=== PATIENT | female | born 1935 | race Caucasian/White ===

== ENCOUNTER 2018-01-20 12:34 | Inpatient (IN) ==
[2018-01-20] MEDS ORDERED: MethylPREDNISolone Sod Succinate Inj 125 MG/2 ML Vial IV.PUSH ONE (12:57)
--- NOTE | 2018-01-20 13:08 | ED ---
HPI General Chief Complaint: Respiratory Symptoms Stated Complaint: cold symptoms Time Seen by Provider: 01/20/18 12:40 Source: patient and RN notes reviewed Mode of arrival: ambulatory Limitations: no limitations History of Present Illness 82-year-old female presents to the emergency department for evaluation of shortness of breath. Patient saw her primary care physician, Dr. England at the [facility] here [place] today. She has been on prednisone, 10 days of Cipro without improvement. Her oxygen saturation has been running in the upper 80s for the past couple of weeks. She reports increasing shortness of breath. She is using a nebulizer at home with some improvement when she uses it. No fevers. She denies any chest pain. No abdominal pain. No nausea or vomiting. She is not on anticoagulants. She denies any cardiac history. Moderate severity. MD Complaint: Reports shortness of breath Onset (ago): week(s) Severity: moderate Consistency/Duration: constant Relieving factors: bronchodilators Known history of: Reports COPD Associated symptoms: Reports cough and chest congestion; Denies chest pain, pain with inspiration, fever, wheezing, lower extremity pain, polyuria, polydipsia, paresthesias, palpitations, carpopedal spasm, hemoptysis, diaphoresis, nausea/vomiting, syncope, abdominal pain, rash, sense of impending doom, dizziness and lightheadedness Related Data Home Medications Medication Instructions Recorded Confirmed amlodipine 5 mg PO DAILY 01/20/18 01/20/18 benzonatate 200 mg PO TID PRN 01/20/18 01/20/18 cetirizine [Zyrtec] 10 mg PO DAILY 01/20/18 01/20/18 cholecalciferol (vitamin D3) 1,000 unit PO DAILY 01/20/18 01/20/18 [Vitamin D3] cyanocobalamin (vitamin B-12) 1,000 mcg PO DAILY 01/20/18 01/20/18 [Vitamin B-12] escitalopram oxalate [Lexapro] 10 mg PO DAILY 01/20/18 01/20/18 ipratropium-albuterol 3 ml INHALATION QID PRN 01/20/18 01/20/18 levothyroxine 112 mcg PO DAILY 01/20/18 01/20/18 pioglitazone [Actos] 15 mg PO DAILY 01/20/18 01/20/18 pravastatin 80 mg PO DAILY 01/20/18 01/20/18 prednisone 10 mg PO DIRECTED 01/20/18 01/20/18 Allergies Allergy/AdvReac Type Severity Reaction Status Date / Time paper tape AdvReac Intermediate rash Uncoded 05/18/12 10:11 Review of Systems ROS: all other systems reviewed are negative [facility] Medical History Medical History Breast cancer (Acute) COPD (chronic obstructive pulmonary disease) (Acute) Diabetes mellitus type II, controlled (Acute) Hypertension (Acute) Lymphedema (Acute) Social History Social History Substance History: No History of Abuse Second Hand Smoke Exposure: No Smoking Status: Former smoker Tobacco Type: E-Cigarettes How Often Do You Have a Drink Containing Alcohol: Monthly or less Recent Travel in [facility] within the Last 8 Weeks: No Recent Out of Country Travel within the Last 8 Weeks: No Immunization History Tetanus Immunization: Unsure Exam Narrative Exam Narrative: GENERAL: Well-nourished, well-developed elderly female patient, ambulatory. Afebrile. SKIN: Focused skin assessment warm/dry. HEAD: Normocephalic. Atraumatic. EYES: No scleral icterus. No injection or drainage. NECK: Supple, trachea midline. No JVD or lymphadenopathy. CARDIOVASCULAR: Regular rate and rhythm without murmurs, gallops, or rubs. RESPIRATORY: Breath sounds equal bilaterally. No accessory muscle use. Lung sounds are diminished throughout. Patient is tachypneic GASTROINTESTINAL: Abdomen soft, non-tender, nondistended. MUSCULOSKELETAL: No cyanosis, or edema. BACK: Nontender without obvious deformity. No CVA tenderness. Course Initial Documented Vital Signs Temperature 97.3 F L 01/20/18 12:37 Pulse Rate 89 01/20/18 12:37 Respiratory Rate 22 01/20/18 12:37 Blood Pressure 173/87 H 01/20/18 12:37 Pulse Oximetry 88 L 01/20/18 12:37 Last Documented Vital Signs Temperature 97.3 F L 01/20/18 12:37 Pulse Rate 85 01/20/18 16:48 Respiratory Rate 16 01/20/18 16:48 Blood Pressure 160/73 H 01/20/18 14:00 Pulse Oximetry 96 01/20/18 14:00 Medical Decision Making MDM Narrative Medical decision making narrative: 82-year-old presents to the emergency department sent by the resident, Dr. England, for COPD exacerbation. Patient is on saturation is 88% on room air. She is not on home O2. EKG, CBC, CMP, lactic acid, magnesium, CK, troponin, chest x-ray are ordered and pending. Patient is given DuoNeb x3, Solu-Medrol 125 mg IV. EKg [-]. CBC shows leukocytosis of 12.2. CMP shows BUN of 30, creatinine of 1.51. Lactic acid is 1.5. Magnesium is 1.9. CK is 200. Troponin is 0.05. Chest x-ray shows mild opacity at the right lung base has an appearance favoring atelectasis or consolidation and small pleural effusion, stable 5 mm right lower lobe noncalcified pulmonary nodule. Patient start azithromycin and Rocephin. She will be admitted for COPD exacerbation, pneumonia, hypoxia. Medical Screen Exam Complete: Yes Emergency Medical Condition: Yes Differential Diagnosis Differential Diagnosis: COPD exacerbation versus pneumonia versus CHF versus sepsis Lab Data Result diagrams: 01/20/18 13:00 01/20/18 13:00 Lab Results 01/20/18 01/20/18 01/20/18 Range/Units 13:00 13:00 13:05 WBC 12.2 H (4.0-11.0) th/mm3 RBC 4.56 (4.00-5.30) mil/mm3 Hgb 14.8 (11.6-15.3) gm/dL Hct 46.0 (35.0-46.0) % MCV 100.8 H (80.0-100.0) fL MCH 32.5 (27.0-34.0) pg MCHC 32.2 (32.0-36.0) % RDW 15.5 (11.6-17.2) % Plt Count 332 (150-450) th/mm3 MPV 7.7 (7.0-11.0) fL Neut % (Auto) 89.3 H (16.0-70.0) % Lymph % (Auto) 4.7 L (9.0-44.0) % Stephens % (Auto) 4.7 (0.0-8.0) % Eos % (Auto) 0.6 (0.0-4.0) % Baso % (Auto) 0.7 (0.0-2.0) % Neut # (Auto) 10.9 H (1.8-7.7) th/mm3 Lymph # (Auto) 0.6 L (1.0-4.8) th/mm3 Stephens # (Auto) 0.6 (0.0-0.9) th/mm3 Eos # (Auto) 0.1 (0.0-0.4) th/mm3 Baso # (Auto) 0.1 (0.0-0.2) th/mm3 WBC Differential . Differential Comment Auto diff final Sodium 141 (136-145) meq/L Potassium 4.6 (3.5-5.1) meq/L Chloride 103 (98-107) meq/L Carbon Dioxide 29.3 (21.0-32.0) meq/L Anion Gap 9 (5-15) meq/L BUN 30 H (7-18) mg/dL Creatinine 1.51 H (0.50-1.00) mg/dL Estimated GFR 33 L (>89) mL/min Random Glucose 106 (74-106) mg/dL Lactic Acid 1.5 (0.4-2.0) mmol/L Calcium 8.2 L (8.5-10.1) mg/dL Magnesium 1.9 (1.5-2.5) mg/dL Total Bilirubin 0.8 (0.2-1.0) mg/dL AST 42 H (15-37) U/L ALT 73 H (10-53) U/L Alkaline Phosphatase 77 (45-117) U/L Total Creatine Kinase 200 H (26-192) U/L CK-MB (CK-2) 8.8 H (0.5-3.6) ng/mL CK-MB (CK-2) % 4.4 H* (0.0-4.0) % Troponin I 0.05 (0.02-0.05) ng/mL Total Protein 7.2 (6.4-8.2) g/dL Albumin 3.1 L (3.4-5.0) g/dL Imaging Data Radiologist's impression: Chest X-Ray 01/20/18 12:58 CONCLUSION: 1. Mild opacity at the right lung base has an appearance favoring atelectasis or consolidation and small pleural effusion. 2. Stable 5 mm right lower lobe noncalcified pulmonary nodule. Discharge Plan Discharge Disposition Patient Disposition: ED Admit(ED Internal Use Only) Discharge Order Discharge Orders: ED Use Only Admit Order (Routine); Ordered 01/20/18 Ordered By: Shayy Pro Discharge Details Diagnosis: COPD exacerbation, Pneumonia Physicians Team ED Provider: Manuela Paniagua ED Midlevel Provider: Shayy Pro Primary Care Provider: Lyndon Henry Attending Provider: Dani Sy Discharge Interventions Interventions: Vital Signs Last Done: 01/20/18 14:00 Status ED Status: Admitted Patient
[2018-01-20 13:31] LABS: Baso # (Auto) 0.1 th/mm3 (0.0-0.2); Baso % (Auto) 0.7 % (0.0-2.0); Eos # (Auto) 0.1 th/mm3 (0.0-0.4); Eos % (Auto) 0.6 % (0.0-4.0); Hemoglobin 14.8 gm/dL (11.6-15.3); Lymph # (Auto) 0.6 th/mm3 (1.0-4.8); Lymph % (Auto) 4.7 % (9.0-44.0); Mean Corpuscular HGB Conc 32.2 % (32.0-36.0); Mean Corpuscular Hemoglobin 32.5 pg (27.0-34.0); Mean Corpuscular Volume 100.8 fL (80.0-100.0); Mean Platelet Volume 7.7 fL (7.0-11.0); Mono # (Auto) 0.6 th/mm3 (0.0-0.9); Mono % (Auto) 4.7 % (0.0-8.0); Neut # (Auto) 10.9 th/mm3 (1.8-7.7); Neut % (Auto) 89.3 % (16.0-70.0); Platelet Count 332 th/mm3 (150-450); Red Blood Count 4.56 mil/mm3 (4.00-5.30); Red Cell Distribution Width 15.5 % (11.6-17.2); White Blood Count 12.2 th/mm3 (4.0-11.0)
--- NOTE | 2018-01-20 13:53 | XR ---
EXAM DATE: 01/20/2018 1:33 PM EST AGE/SEX: 82 years / Female INDICATIONS: Shortness of breath and congestion. CLINICAL DATA: This is the patient's initial encounter. Patient reports that signs and symptoms have been present for 3 days and indicates a pain score of 0/10. MEDICAL/SURGICAL HISTORY: Chronic obstructive pulmonary disease. Carcinoma, breast. Diabetes mellitus type II. . Lumpectomy. COMPARISON: [facility], CTA PULMONARY ANGIOGRAM, 11/25/2017. . FINDINGS: Portable AP view of the chest demonstrates stable mildly enlarged cardiac silhouette with calcificati on of the aorta. There is mild hazy opacity at the right lung base. A questionable right pleural-base d opacity is present. No pneumothorax is identified. 5 mm nodule in the right lower lung zone is stab le. Bones and soft tissues demonstrate no acute finding. CONCLUSION: 1. Mild opacity at the right lung base has an appearance favoring atelectasis or consolidation and s mall pleural effusion. 2. Stable 5 mm right lower lobe noncalcified pulmonary nodule. Electronically signed by: Benja Shirley MD 01/20/2018 1:51 PM EST
[2018-01-20 13:54] LABS: Alanine Aminotransferase 73 U/L (10-53); Albumin 3.1 g/dL (3.4-5.0); Anion Gap 9 meq/L (5-15); Aspartate Aminotransferase 42 U/L (15-37); Blood Urea Nitrogen 30 mg/dL (7-18); Calcium 8.2 mg/dL (8.5-10.1); Carbon Dioxide 29.3 meq/L (21.0-32.0); Chloride 103 meq/L (98-107); Glomerular Filtration Rate 33 mL/min (>89); Glucose,Random 106 mg/dL (74-106); Magnesium 1.9 mg/dL (1.5-2.5); Potassium 4.6 meq/L (3.5-5.1); Sodium 141 meq/L (136-145)
[2018-01-20 13:57] LABS: Alkaline Phosphatase 77 U/L (45-117); Creatine Kinase 200 U/L (26-192); Total Protein 7.2 g/dL (6.4-8.2); Troponin I 0.05 ng/mL (0.02-0.05)
[2018-01-20] MEDS ORDERED: Azithromycin Inj 500 MG in Sodium Chlor 0.9% Inj 250 ML IV.SIG ONE (13:57)
[2018-01-20 14:16] LABS: Creatine Kinase MB 8.8 ng/mL (0.5-3.6)
--- NOTE | 2018-01-20 14:58 | P.HPFP ---
History of Present Illness Service: [facility] Teaching Service <Dani Martinez - 01/20/18 15:55> Primary Care Physician: Lyndon Henry MD <Dani Sy Adeline - 01/21/18 20:20> Lyndon Henry MD <Dani Martinez - 01/20/18 15:55> Chief Complaint: dyspnea <Dani Martinez - 01/20/18 15:55> History of Present Illness: Patient is an 82 year old female with a history of COPD, not on home oxygen, CKD stage III, hypertension, diabetes, hypothyroidism , hyperlipidemia, depression who presents with increased dyspnea. She reports that her symptoms started a couple mornings before with a scratchy, itchy throat. Then the Tuesday before , she presented to an urgent care, where she was told her chest sounded raspy. They gave her a 10-day course of ciprofloxacin, 15-day steroid taper, and Tessalon Perles. Despite taking the medications as prescribed, patient reports that her symptoms got worse with chest congestion, rough cold symptoms. Patient has also doing nebulizer treatments up to 4 times a day intermittently without symptom resolution. Because she hasn't been getting any better, she presented to Dr. England earlier today. He referred her to the ED. Patient reports shortness of breath secondary to excessive mucus production. She reports a productive cough, that recently seems thicker and darker than usual. She reports that she is not drinking enough fluids. She hasn't peed since she got to ED. She reports that her dysequilibrium is worse than usual because it feels like her head is in a fog. No fevers. She denies any chest pain. No abdominal pain. No nausea or vomiting. She is not on anticoagulants. She denies any cardiac history. Patient reports that she has a beer cooler, Dr. Guzmán. Dr. England' note says her beer cooler is Dr. Montalvo. <Dani Martinez - 01/20/18 21:28> - Diagnosis (1) Pneumonia (2) COPD exacerbation (3) Elevated CK-MB level (4) Intertrigo (5) CKD (chronic kidney disease) stage 3, GFR 30-59 ml/min (6) Hypothyroidism (7) HTN (hypertension) (8) Type 2 diabetes mellitus (9) HLD (hyperlipidemia) (10) Depression <YossiDani Adeline - 01/21/18 20:20> (1) Pneumonia (2) COPD exacerbation (3) Elevated CK-MB level (4) Intertrigo (5) CKD (chronic kidney disease) stage 3, GFR 30-59 ml/min (6) Hypothyroidism (7) HTN (hypertension) (8) Type 2 diabetes mellitus (9) HLD (hyperlipidemia) (10) Depression <Dani Martinez A - 01/20/18 21:29> Inpatient Certification: I certify that the inpatient services were ordered in accordance with Medicare regulations governing the order. This includes certification that hospital inpatient services are reasonable and necessary and in the case of services not specified as inpatient-only under 42 CFR 419.22(n), that they are appropriately provided as inpatient services in accordance to with the 2-midnight benchmark under 43 CFR 412.3(e) <Dani Sy - 01/21/18 20:20> I certify that the inpatient services were ordered in accordance with Medicare regulations governing the order. This includes certification that hospital inpatient services are reasonable and necessary and in the case of services not specified as inpatient-only under 42 CFR 419.22(n), that they are appropriately provided as inpatient services in accordance to with the 2-midnight benchmark under 43 CFR 412.3(e) <MichelleDaniMarcio - 01/20/18 14:58> Review of Systems Denies fever or chills, no night sweats or weight loss No polyuria, polydipsia Denies vision changes, eye pain, hearing changes Denies dysphagia No chest pain, palpitations No abdominal pain Denies constipation, diarrhea, nausea, vomiting, black or bloody stools No dysuria, hematuria Denies muscle/joint pain, weakness, headache No rashes, itching <Dani Martinez - 01/20/18 21:28> PMFSH - History History Provided By: Patient <MichelleDaniMarcio - 01/20/18 14:58> - Medical History Medical History: Medical History (Last Updated 01/20/18 @ 12:58 by Sandra Law) Breast cancer COPD (chronic obstructive pulmonary disease) Diabetes mellitus type II, controlled Hypertension Lymphedema <Dani Sy - 01/21/18 20:20> Medical History (Last Updated 01/20/18 @ 12:58 by Sandra Law) Breast cancer COPD (chronic obstructive pulmonary disease) Diabetes mellitus type II, controlled Hypertension Lymphedema <Dani Martinez - 01/20/18 14:58> - Tobacco History Second Hand Smoke Exposure: No <Dani Martinez - 01/20/18 14:58> Tobacco Use In Past 30 Days: Yes <Dani Martinez - 01/20/18 14:58> Smoking Status: Former smoker <Dani Martinez - 01/20/18 14:58> Tobacco Type: E-Cigarettes <Dani Martinez - 01/20/18 14:58> - Alcohol History How Often Do You Have a Drink Containing Alcohol: Monthly or less <Dani Martinez - 01/20/18 14:58> - Substance Use History Substance History: No History of Abuse <Dani Martinez - 01/20/18 14:58> - Travel History Recent Travel in the [facility] Within the Last 8 Weeks: No <Dani Martinez - 01/20 14:58> Recent Travel Out of the Country Within the Last 8 Weeks: No <Dani Martinez - 01/20/18 14:58> - Immunization History Tetanus Immunization: Unsure <Dani Martinez - 01/20/18 14:58> Medications and Allergies Allergies Allergy/AdvReac Type Severity Reaction Status Date / Time paper tape AdvReac Intermediate rash Uncoded 05/18/12 10:11 <Dani Sy - 01/21/18 20:20> Home Medications Medication Instructions Recorded Confirmed Type amlodipine 5 mg PO DAILY 01/20/18 01/20/18 History benzonatate 200 mg PO TID PRN 01/20/18 01/20/18 History cetirizine [Zyrtec] 10 mg PO DAILY 01/20/18 01/20/18 History cholecalciferol (vitamin D3) 1,000 unit PO DAILY 01/20/18 01/20/18 History [Vitamin D3] cyanocobalamin (vitamin B-12) 1,000 mcg PO DAILY 01/20/18 01/20/18 History [Vitamin B-12] escitalopram oxalate [Lexapro] 10 mg PO DAILY 01/20/18 01/20/18 History ipratropium-albuterol 3 ml INHALATION QID PRN 01/20/18 01/20/18 History levothyroxine 112 mcg PO DAILY 01/20/18 01/20/18 History pioglitazone [Actos] 15 mg PO DAILY 01/20/18 01/20/18 History pravastatin 80 mg PO DAILY 01/20/18 01/20/18 History prednisone 10 mg PO DIRECTED 01/20/18 01/20/18 History <Dani Sy L - 01/21/18 20:20> Active Medications: Active Medications Albuterol (Albuterol Neb (Prn)) 2.5 mg NEB Q2HR NEB PRN PRN Reason: SHORTNESS OF BREATH Albuterol (Duoneb Neb (Bay)) 1 ampul NEB Q4HR NEB [facility] Last Admin: 01/21/18 20:10 Dose: 1 ampul Amlodipine Besylate (Norvasc) [address] [facility] Last Admin: 01/21/18 09:14 Dose: 5 mg Azithromycin (Zithromax) [address] [facility] Stop: 01/23/18 14:01 Last Admin: 01/21/18 13:24 Dose: 500 mg Benzonatate (Tessalon Perles) 200 mg PO TID PRN PRN Reason: COUGH Budesonide/Formoterol Fumarate (Symbicort 160/4.5 Mcg Inh) [address] [facility] Last Admin: 01/21/18 12:58 Dose: 2 puff Cetirizine HCl (Zyrtec) [address] [facility] Last Admin: 01/21/18 09:13 Dose: 10 mg Clotrimazole (Lotrimin 1% Cream) [address] [facility] Last Admin: 01/21/18 18:08 Dose: 1 applicatio Cyanocobalamin (Vitamin B12) 1,[address] [facility] Last Admin: 01/21/18 09:14 Dose: 1,000 mcg Dextrose (D50w Vial) 50 ml IV.PUSH UNSCH PRN PRN Reason: PER HYPOGLYCEMIA PROTOCOL Enoxaparin Sodium (Lovenox Inj) [address] [facility] Last Admin: 01/21/18 17:32 Dose: 40 mg Escitalopram Oxalate (Lexapro) [address] [facility] Last Admin: 01/21/18 09:14 Dose: 10 mg Glucagon (Glucagon Inj) 1 mg OTHER PRN PRN PRN Reason: for Hypoglycemia Protocol Sodium Chloride (Ns Inj) 1,000 mls @ 130 mls/hr IV.CONT .Q7H42M [facility] Last Admin: 01/21/18 17:25 Dose: 130 mls/hr Ceftriaxone Sodium 1,000 mg/ (Sodium Chloride) 100 mls @ 200 mls/hr IV.SIG Q24H [facility] Last Infusion: 01/21/18 18:09 Dose: Infused Insulin Aspart (Novolog Insulin Correctional Sugar Inj) [address] [facility]; Protocol Last Admin: 01/21/18 17:33 Dose: Not Given Levothyroxine Sodium (Synthroid) 112 mcg PO DAILY@0600 [facility] Last Admin: 01/21/18 05:17 Dose: 112 mcg Methylprednisolone Sodium Succinate (Solumedrol Inj) [address] [facility] Stop: 01/22/18 08:59 Last Admin: 01/21/18 17:28 Dose: 60 mg Nicotine (Habitrol 21 Mg Patch.24 Hr) 1 patch T-DERMAL Q24H [facility] Last Admin: 01/21/18 17:30 Dose: Not Given Nitroglycerin (Nitro-Bid 2% Oint) [address] [facility] Last Admin: 01/21/18 17:31 Dose: 1 inch Patch Removal (Remove Old Patch) 1 each T-DERMAL Q24H [facility] Last Admin: 01/21/18 17:34 Dose: Not Given Pravastatin Sodium (Pravachol) [address] [facility] Last Admin: 01/21/18 09:14 Dose: 80 mg Prednisone (Deltasone) [address] [facility] Sodium Chloride (Ns Inj) [address] [facility] Last Admin: 01/21/18 09:16 Dose: Not Given Sodium Chloride (Ns Inj) [address] [facility] Last Admin: 01/21/18 09:16 Dose: Not Given Vitamin D (Vitamin D3) 1,[address] [facility] Last Admin: 01/21/18 09:14 Dose: 1,000 unit <Dani Sy - 01/21/18 20:20> Home Medications amlodipine 5 mg PO DAILY 01/20/18 [History Confirmed 01/20/18] benzonatate 200 mg PO TID PRN 01/20/18 [History Confirmed 01/20/18] cetirizine [Zyrtec] 10 mg PO DAILY 01/20/18 [History Confirmed 01/20/18] cholecalciferol (vitamin D3) [Vitamin D3] 1,000 unit PO DAILY 01/20/18 [History Confirmed 01/20/18] cyanocobalamin (vitamin B-12) [Vitamin B-12] 1,000 mcg PO DAILY 01/20/18 [ History Confirmed 01/20/18] escitalopram oxalate [Lexapro] 10 mg PO DAILY 01/20/18 [History Confirmed ] ipratropium-albuterol 3 ml INHALATION QID PRN 01/20/18 [History Confirmed ] levothyroxine 112 mcg PO DAILY 01/20/18 [History Confirmed 01/20/18] pioglitazone [Actos] 15 mg PO DAILY 01/20/18 [History Confirmed 01/20/18] pravastatin 80 mg PO DAILY 01/20/18 [History Confirmed 01/20/18] prednisone 10 mg PO DIRECTED 01/20/18 [History Confirmed 01/20/18] Active Medications Albuterol (Albuterol Neb (Prn)) 2.5 mg NEB Q2HR NEB PRN PRN Reason: SHORTNESS OF BREATH Albuterol (Duoneb Neb (Bay)) 1 ampul NEB Q4HR NEB [facility] Last Admin: 01/20/18 16:47 Dose: 1 ampul Amlodipine Besylate (Norvasc) [address] [facility] Azithromycin (Zithromax) [address] [facility] Stop: 01/23/18 14:01 Benzonatate (Tessalon Perles) 200 mg PO TID PRN PRN Reason: COUGH Cetirizine HCl (Zyrtec) [address] [facility] Clotrimazole (Lotrimin 1% Cream) [address] [facility] Last Admin: 01/20/18 19:52 Dose: 1 applicatio Cyanocobalamin (Vitamin B12) 1,[address] [facility] Dextrose (D50w Vial) 50 ml IV.PUSH UNSCH PRN PRN Reason: PER HYPOGLYCEMIA PROTOCOL Enoxaparin Sodium (Lovenox Inj) [address] [facility] Last Admin: 01/20/18 17:12 Dose: 40 mg Escitalopram Oxalate (Lexapro) [address] [facility] Glucagon (Glucagon Inj) 1 mg OTHER PRN PRN PRN Reason: for Hypoglycemia Protocol Sodium Chloride (Ns Inj) 1,000 mls @ 130 mls/hr IV.CONT .Q7H42M [facility] Last Admin: 01/20/18 15:36 Dose: 130 mls/hr Ceftriaxone Sodium 1,000 mg/ (Sodium Chloride) 100 mls @ 200 mls/hr IV.SIG Q24H [facility] Insulin Aspart (Novolog Insulin Correctional Sugar Inj) 0 unit SQ ACHS [facility]; Protocol Last Admin: 01/20/18 20:58 Dose: 2 unit Levothyroxine Sodium (Synthroid) 112 mcg PO DAILY@0600 [facility] Methylprednisolone Sodium Succinate (Solumedrol Inj) [address] [facility] Stop: 01/22/18 08:59 Nicotine (Habitrol 21 Mg Patch.24 Hr) 1 patch T-DERMAL Q24H [facility] Last Admin: 01/20/18 16:24 Dose: Not Given Nitroglycerin (Nitro-Bid 2% Oint) [address] [facility] Last Admin: 01/20/18 18:38 Dose: 1 inch Patch Removal (Remove Old Patch) 1 each T-DERMAL Q24H [facility] Pravastatin Sodium (Pravachol) [address] [facility] Prednisone (Deltasone) [address] [facility] Sodium Chloride (Ns Inj) [address] [facility] Last Admin: 01/20/18 20:58 Dose: 2 ml Sodium Chloride (Ns Inj) [address] [facility] Last Admin: 01/20/18 20:58 Dose: Not Given Vitamin D (Vitamin D3) 1,[address] [facility] <Dani Martinez - 01/20/18 21:28> Exam Vital signs: Vital Signs 01/21/18 00:00 01/21/18 00:38 01/21/18 03:33 Temperature 97.1 F L Pulse Rate 97 H 91 H 89 Respiratory Rate 18 18 20 Blood Pressure 134/67 Pulse Oximetry 95 94 L 01/21/18 04:00 01/21/18 07:30 01/21/18 08:00 Temperature 97.9 F 97.6 F Pulse Rate 95 H 97 H 92 H Respiratory Rate 18 20 16 Blood Pressure 138/73 177/92 H Pulse Oximetry 93 L 97 97 01/21/18 11:39 01/21/18 12:00 01/21/18 16:00 Temperature 97.7 F 97.2 F L Pulse Rate 92 H 92 H 97 H Respiratory Rate 16 16 16 Blood Pressure 133/83 130/76 Pulse Oximetry 96 94 L 01/21/18 16:22 01/21/18 20:12 Temperature Pulse Rate 89 89 Respiratory Rate 16 16 Blood Pressure Pulse Oximetry 94 L Intake & Output 01/21/18 01/21/18 01/22/18 06:59 18:59 06:59 Intake Total 1600 / 1600 660 / 660 Output Total 200 / 200 540 / 540 Balance 1400 / 1400 120 / 120 Weight 90.9 kg Intake: IV 1000 / 1000 100 / 100 NS Inj 1,000 ML @ 130 mls/hr IV 1000 / [address] [facility] Rx#:[id number] Rocephin Inj 1,000 MG In NS Inj 100 / 100 100 ML @ 200 mls/hr IV.SIG Q24H [facility] Rx#:[id number] Oral 600 / 600 560 / 560 Output: Urine 200 / 200 540 / 540 Other: Date of Last Bowel Movement 01/21/18 01/20/18 # Bowel Movements 1 <Dani Sy - 01/21/18 20:20> Vital Signs 01/20/18 12:37 01/20/18 12:59 01/20/18 13:13 Temperature 97.3 F L Pulse Rate 89 86 81 Respiratory Rate 22 24 22 Blood Pressure 173/87 H 190/86 H Pulse Oximetry 88 L 88 L 94 L 01/20/18 13:59 01/20/18 14:00 Temperature Pulse Rate 85 Respiratory Rate 16 Blood Pressure 160/73 H Pulse Oximetry 92 L 96 Intake & Output 01/19/18 01/20/18 01/20/18 18:59 06:59 18:59 Intake Total 100 / 100 Balance 100 / 100 Weight 90.265 kg Intake: IV 100 / 100 Rocephin Inj 1,000 MG In NS Inj 100 / 100 100 ML @ 200 mls/hr IV.SIG ONCE ONE Rx#:[id number] <Dani Martinez - 01/20/18 14:58> Narrative: Patient is an 82-year-old female. GENERAL: Well developed, obese female who answers questions appropriately. She is sitting in exam room with her daughter in no acute distress. SKIN: + Erythematous macular rash under left breast, + satellite lesions. + skin tenting EYES: PERRLA. EOMI. Lids and conjunctivae reveal no gross abnormality. No scleral icterus. ENT: Dry mucous membranes. Oropharynx unremarkable. No rhinorrhea. Tympanic membranes normal bilaterally. NECK: No JVD. + cervical lymphadenopathy appreciated. Trachea midline. RESPIRATORY: No increased work of breathing or accessory muscle use but mild tachypnea. Coarse breath sounds. Decreased breath sounds at the bases. End- expiratory wheezes bilaterally. Crackles and dullness to percussion appreciated over the right lower lung lora. CARDIOVASCULAR: Regular rate and rhythm without MGR appreciated. ABDOMEN: Obese and slightly distended. Non tender. MUSCULOSKELETAL: No cyanosis or edema. No calf tenderness, warmth, erythema. NEUROLOGICAL: Afocal. AAO x3. Normal speech and judgment. <Dani Martinez - 01/20/18 21:28> Results - Labs Result diagrams: 01/21/18 01:38 01/21/18 01:38 <Dani Sy - 01/21/18 20:20> Abnormal lab results 01/20/18 01/21/18 01/21/18 Range/Units 20:19 01:38 01:38 Neut % (Auto) 93.2 H (16.0-70.0) % Lymph % (Auto) 3.7 L (9.0-44.0) % Lymph # (Auto) 0.3 L (1.0-4.8) th/mm3 BUN 42 H (7-18) mg/dL Creatinine 1.83 H (0.50-1.00) mg/dL Estimated GFR 27 L (>89) mL/min POC Glucose 219 H (68-110) mg/dl Random Glucose 201 H (74-106) mg/dL Calcium 7.2 L* D (8.5-10.1) mg/dL Calcium Adj for Albumin 8.3 L (8.5-10.1) mg/dL ALT 54 H (10-53) U/L Total Creatine Kinase (26-192) U/L CK-MB (CK-2) 7.2 H (0.5-3.6) ng/mL Total Protein 6.2 L D (6.4-8.2) g/dL Albumin 2.6 L (3.4-5.0) g/dL 01/21/18 01/21/18 01/21/18 Range/Units 09:47 17:03 19:34 Neut % (Auto) (16.0-70.0) % Lymph % (Auto) (9.0-44.0) % Lymph # (Auto) (1.0-4.8) th/mm3 BUN (7-18) mg/dL Creatinine (0.50-1.00) mg/dL Estimated GFR (>89) mL/min POC Glucose 194 H 185 H (68-110) mg/dl Random Glucose (74-106) mg/dL Calcium (8.5-10.1) mg/dL Calcium Adj for Albumin (8.5-10.1) mg/dL ALT (10-53) U/L Total Creatine Kinase 229 H (26-192) U/L CK-MB (CK-2) 8.8 H (0.5-3.6) ng/mL Total Protein (6.4-8.2) g/dL Albumin (3.4-5.0) g/dL Short CBC 01/21/18 Range/Units 01:38 WBC 8.2 (4.0-11.0) th/mm3 Hgb 13.0 (11.6-15.3) gm/dL Hct 39.4 (35.0-46.0) % Plt Count 265 (150-450) th/mm3 BMP 01/21/18 01:38 Sodium 141 Potassium 4.3 Chloride 106 Carbon Dioxide 24.2 BUN 42 H Creatinine 1.83 H Calcium 7.2 L* D Cardiac Enzymes 01/20/18 01/21/18 01/21/18 Range/Units 20:02 01:38 09:47 Total Creatine Kinase 175 164 229 H (26-192) U/L CK-MB (CK-2) 7.2 H 8.8 H (0.5-3.6) ng/mL Troponin I 0.05 0.05 (0.02-0.05) ng/mL Liver Function 01/21/18 Range/Units 01:38 Total Bilirubin 0.2 (0.2-1.0) mg/dL AST 23 (15-37) U/L ALT 54 H (10-53) U/L Alkaline Phosphatase 64 (45-117) U/L Albumin 2.6 L (3.4-5.0) g/dL <Dani Sy L - 01/21/18 20:20> Abnormal lab results 01/20/18 01/20/18 Range/Units 13:00 13:00 WBC 12.2 H (4.0-11.0) th/mm3 MCV 100.8 H (80.0-100.0) fL Neut % (Auto) 89.3 H (16.0-70.0) % Lymph % (Auto) 4.7 L (9.0-44.0) % Neut # (Auto) 10.9 H (1.8-7.7) th/mm3 Lymph # (Auto) 0.6 L (1.0-4.8) th/mm3 BUN 30 H (7-18) mg/dL Creatinine 1.51 H (0.50-1.00) mg/dL Estimated GFR 33 L (>89) mL/min Calcium 8.2 L (8.5-10.1) mg/dL AST 42 H (15-37) U/L ALT 73 H (10-53) U/L Total Creatine Kinase 200 H (26-192) U/L Albumin 3.1 L (3.4-5.0) g/dL Short CBC 01/20/18 Range/Units 13:00 WBC 12.2 H (4.0-11.0) th/mm3 Hgb 14.8 (11.6-15.3) gm/dL Hct 46.0 (35.0-46.0) % Plt Count 332 (150-450) th/mm3 BMP 01/20/18 13:00 Sodium 141 Potassium 4.6 Chloride 103 Carbon Dioxide 29.3 BUN 30 H Creatinine 1.51 H Calcium 8.2 L Cardiac Enzymes 01/20/18 Range/Units 13:00 Total Creatine Kinase 200 H (26-192) U/L Troponin I 0.05 (0.02-0.05) ng/mL Liver Function 01/20/18 Range/Units 13:00 Total Bilirubin 0.8 (0.2-1.0) mg/dL AST 42 H (15-37) U/L ALT 73 H (10-53) U/L Alkaline Phosphatase 77 (45-117) U/L Albumin 3.1 L (3.4-5.0) g/dL <Dani Martinez A - 01/20/18 14:58> - Imaging Impressions Chest X-Ray 01/20/18 12:58 CONCLUSION: 1. Mild opacity at the right lung base has an appearance favoring atelectasis or consolidation and small pleural effusion. 2. Stable 5 mm right lower lobe noncalcified pulmonary nodule. <Dani Martinez - 01/20/18 21:28> Caprini VTE Risk Assessment Caprini VTE Risk Assessment: Moderate/High Risk (score >= 2) <Dani Martinez - 01/20/18 15:55> Caprini Risk Assessment Model: Point Value = 1 Point Value = 2 Point Value = 3 Point Value = 5 Age 41-60 Minor surgery BMI > 25 kg/m2 Swollen legs Varicose veins or History of unexplained or recurrent spontaneous Oral contraceptives or hormone replacement Sepsis (< 1 month) Serious lung disease, including pneumonia (< 1 month) Abnormal pulmonary function Acute myocardial infarction Congestive heart failure (< 1 month) History of inflammatory bowel disease Medical patient at bed rest Age 61-74 Arthroscopic surgery Major open surgery (> 45 min) Laparoscopic surgery (> 45 min) Malignancy Confined to bed (> 72 hours) Immobilizing plaster cast Central venous access Age >= 75 History of VTE Family history of VTE Factor V Leiden Prothrombin [id number] Lupus anticoagulant Anticardiolipin antibodies Elevated serum homocysteine Heparin-induced thrombocytopenia Other congenital or acquired thrombophilia Stroke (< 1 month) Elective arthroplasty Hip, pelvis, or leg fracture Acute spinal cord injury (< 1 month) <Dani Sy - 01/21/18 20:20> Point Value = 1 Point Value = 2 Point Value = 3 Point Value = 5 Age 41-60 Minor surgery BMI > 25 kg/m2 Swollen legs Varicose veins or History of unexplained or recurrent spontaneous Oral contraceptives or hormone replacement Sepsis (< 1 month) Serious lung disease, including pneumonia (< 1 month) Abnormal pulmonary function Acute myocardial infarction Congestive heart failure (< 1 month) History of inflammatory bowel disease Medical patient at bed rest Age 61-74 Arthroscopic surgery Major open surgery (> 45 min) Laparoscopic surgery (> 45 min) Malignancy Confined to bed (> 72 hours) Immobilizing plaster cast Central venous access Age >= 75 History of VTE Family history of VTE Factor V Leiden Prothrombin [id number] Lupus anticoagulant Anticardiolipin antibodies Elevated serum homocysteine Heparin-induced thrombocytopenia Other congenital or acquired thrombophilia Stroke (< 1 month) Elective arthroplasty Hip, pelvis, or leg fracture Acute spinal cord injury (< 1 month) <Dani Martinez - 01/20/18 14:58> Prophylaxis Regimen: Total Risk Factor Score Risk Level Prophylaxis Regimen 0-1 Low Early ambulation 2 Moderate Order ONE of the following: *Sequential Compression Device (SCD) *Heparin 5000 units SQ BID 3-4 Higher Order ONE of the following medications: *Heparin 5000 units SQ TID *Enoxaparin/Lovenox 40 mg SQ daily (WT < 150 kg, CrCl > 30 mL/min) *Enoxaparin/Lovenox 30 mg SQ daily (WT < 150 kg, CrCl > 10-29 mL/min) *Enoxaparin/Lovenox 30 mg SQ BID (WT < 150 kg, CrCl > 30 mL/min) AND/OR *Sequential Compression Device (SCD) 5 or more Highest Order ONE of the following medications: *Heparin 5000 units SQ TID (Preferred with Epidurals) *Enoxaparin/Lovenox 40 mg SQ daily (WT < 150 kg, CrCl > 30 mL/min) *Enoxaparin/Lovenox 30 mg SQ daily (WT < 150 kg, CrCl > 10-29 mL/min) *Enoxaparin/Lovenox 30 mg SQ BID (WT < 150 kg, CrCl > 30 mL/min) AND *Sequential Compression Device (SCD) <Dani Sy - 01/21/18 20:20> Total Risk Factor Score Risk Level Prophylaxis Regimen 0-1 Low Early ambulation 2 Moderate Order ONE of the following: *Sequential Compression Device (SCD) *Heparin 5000 units SQ BID 3-4 Higher Order ONE of the following medications: *Heparin 5000 units SQ TID *Enoxaparin/Lovenox 40 mg SQ daily (WT < 150 kg, CrCl > 30 mL/min) *Enoxaparin/Lovenox 30 mg SQ daily (WT < 150 kg, CrCl > 10-29 mL/min) *Enoxaparin/Lovenox 30 mg SQ BID (WT < 150 kg, CrCl > 30 mL/min) AND/OR *Sequential Compression Device (SCD) 5 or more Highest Order ONE of the following medications: *Heparin 5000 units SQ TID (Preferred with Epidurals) *Enoxaparin/Lovenox 40 mg SQ daily (WT < 150 kg, CrCl > 30 mL/min) *Enoxaparin/Lovenox 30 mg SQ daily (WT < 150 kg, CrCl > 10-29 mL/min) *Enoxaparin/Lovenox 30 mg SQ BID (WT < 150 kg, CrCl > 30 mL/min) AND *Sequential Compression Device (SCD) <Dani Martinez A - 01/20/18 14:58> Assessment and Plan - Assessment (1) Pneumonia Code(s): J18.9 - Pneumonia, unspecified organism Status: Acute (2) COPD exacerbation Code(s): J44.1 - Chronic obstructive pulmonary disease with (acute) exacerbation Status: Acute (3) Elevated CK-MB level Code(s): R74.8 - Abnormal levels of other serum enzymes Status: Acute (4) Intertrigo Code(s): L30.4 - Erythema intertrigo Status: Acute (5) CKD (chronic kidney disease) stage 3, GFR 30-59 ml/min Code(s): N18.3 - Chronic kidney disease, stage 3 (moderate) Status: Chronic (6) Hypothyroidism Code(s): E03.9 - Hypothyroidism, unspecified Status: Chronic (7) HTN (hypertension) Code(s): I10 - Essential (primary) hypertension Status: Chronic (8) Type 2 diabetes mellitus Code(s): E11.9 - Type 2 diabetes mellitus without complications Status: Chronic (9) HLD (hyperlipidemia) Code(s): E78.5 - Hyperlipidemia, unspecified Status: Chronic (10) Depression Code(s): F32.9 - Major depressive disorder, single episode, unspecified Status : Chronic <Dani Sy Adeline - 01/21/18 20:20> (1) Pneumonia Code(s): J18.9 - Pneumonia, unspecified organism Status: Acute Plan: Patient on last day of 10 day course of Cipro for COPD exacerbation, received Ceftriaxone 1g IV, Azithromycin 500 mg IV in the ED. -Ceftriaxone 1g IV q24h -Azithromycin 500 mg po qd -follow up blood cultures -monitor VS including pulse ox, telemetry (2) COPD exacerbation Code(s): J44.1 - Chronic obstructive pulmonary disease with (acute) exacerbation Status: Acute Plan: Patient on last day of 10 day long steroid taper, received Solumedrol 125 mg IV , DuoNeb in ED. -Solumedrol 60mg IV q6h for 24h, then prednisone 40 mg po qd -DuoNeb q4h bay, albuterol neb q2h PRN -follow up sputum culture, gram stain -titrate O2 as needed to maintain O2 sat > 88% (3) Elevated CK-MB level Code(s): R74.8 - Abnormal levels of other serum enzymes Status: Acute Plan: -q6h EKG, trop, CKMB -consider cardiology consult if continued elevations (4) Intertrigo Code(s): L30.4 - Erythema intertrigo Status: Acute Plan: -clotrimazole topically tid -skin care protocol ordered (5) CKD (chronic kidney disease) stage 3, GFR 30-59 ml/min Code(s): N18.3 - Chronic kidney disease, stage 3 (moderate) Status: Chronic Plan: 08/01/17 Cr of 1.87, 09/06/17 Cr of 1.41, 01/20/18 Cr of 1.51 -CrCl > 30 (6) Hypothyroidism Code(s): E03.9 - Hypothyroidism, unspecified Status: Chronic Plan: -continue home medication of levothyroxine 112 mcg po qd (7) HTN (hypertension) Code(s): I10 - Essential (primary) hypertension Status: Chronic Plan: -continue home medication of amlodipine 5 mg po qd (8) Type 2 diabetes mellitus Code(s): E11.9 - Type 2 diabetes mellitus without complications Status: Chronic Plan: -low dose SSI achs -hypoglycemia protocol ordered -hold home med (9) HLD (hyperlipidemia) Code(s): E78.5 - Hyperlipidemia, unspecified Status: Chronic Plan: -continue home medication of pravastatin 80mg po qd (10) Depression Code(s): F32.9 - Major depressive disorder, single episode, unspecified Status : Chronic Plan: -continue home medication of Lexapro 10 mg po qd <Dani Martinez - 01/20/18 21:29> - Assessment and Plan Patient is an 82 year old female with a history of COPD, not on home oxygen, CKD stage III, hypertension, diabetes, hypothyroidism, hyperlipidemia, depression who presents with increased dyspnea, 3 out of 3 cardinal symptoms of COPD exacerbation, hypoxia, chest x-ray concerning for pneumonia. Plan to admit to treat for pneumonia with IV antibiotics, oxygen as needed. Follow up blood cultures. We will treat COPD exacerbation with IV steroids, nebulized breathing treatments. Patient also presented to the ED with elevated CKMB. Will follow labs and EKGs. <Dani Martinez - 01/20/18 21:28> - Attending Attestation The exam, history, and the medical decision-making described in the above note were completed with the assistance of the resident physician. I reviewed and agree with the findings presented. I attest that I had a [id number] encounter with the patient on the following day, and personally performed and documented my assessment and findings in the medical record. <Dani Sy - 01/21/18 20:20> <Dani Martinez - Last Filed: 01/20/18 21:29> (1) Pneumonia Qualifiers: Pneumonia type: due to unspecified organism Laterality: right Lung location : lower lobe of lung Qualified Code(s): J18.1 - Lobar pneumonia, unspecified organism <Dani Sy - Last Filed: 01/21/18 20:20> (1) Pneumonia Qualifiers: Pneumonia type: due to unspecified organism Laterality: right Lung location : lower lobe of lung Qualified Code(s): J18.1 - Lobar pneumonia, unspecified organism <Dani Martinez - Last Filed: 01/20/18 21:29> (1) Pneumonia Qualifiers: Pneumonia type: due to unspecified organism Laterality: right Lung location : lower lobe of lung Qualified Code(s): J18.1 - Lobar pneumonia, unspecified organism <Dani yS - Last Filed: 01/21/18 20:20> (1) Pneumonia Qualifiers: Pneumonia type: due to unspecified organism Laterality: right Lung location : lower lobe of lung Qualified Code(s): J18.1 - Lobar pneumonia, unspecified organism
[2018-01-20 15:00] LABS: CKMB Percent 4.4 % (0.0-4.0)
[2018-01-20] MEDS ORDERED: Dextrose 50% in Water 50 ML Vial IV.PUSH PRN (15:21)
[2018-01-20] MEDS: Sod Chloride 0.9% Inj 1,000 ML IV.CONT SCH (15:36)
[2018-01-20] MEDS ORDERED: Benzonatate 100 MG Capsule PO PRN (15:45)
[2018-01-20] MEDS ORDERED: Aspirin 325 MG Tablet PO ONE (16:00)
[2018-01-20] MEDS ORDERED: Sod Chloride 0.9% Inj 1,000 ML IV.SIG SCH (16:00)
[2018-01-20] MEDS: Enoxaparin Inj 40 MG/0.4 ML Syringe SQ SCH (17:12)
[2018-01-20] MEDS: Insulin NovoLOG Aspart Correctional Sugar Inj SQ SCH ×2 (17:17→20:58)
[2018-01-20] MEDS: Clotrimazole 1% Cream 15 GM Tube TOPICAL SCH (19:52)
[2018-01-20] MEDS ORDERED: Influenza (Quadrivalent) Vaccine 0.5 ML Syringe IM ONE (21:00)
[2018-01-20 21:16] LABS: Troponin I 0.05 ng/mL (0.02-0.05)
[2018-01-21] MEDS: Sod Chloride 0.9% Inj 1,000 ML IV.CONT SCH ×4 (01:14→23:39)
[2018-01-21 01:57] LABS: Baso % (Auto) 0.3 % (0.0-2.0); Hematocrit 39.4 % (35.0-46.0); Lymph # (Auto) 0.3 th/mm3 (1.0-4.8); Lymph % (Auto) 3.7 % (9.0-44.0); Mean Corpuscular HGB Conc 33.1 % (32.0-36.0); Mean Corpuscular Hemoglobin 32.5 pg (27.0-34.0); Mean Corpuscular Volume 98.1 fL (80.0-100.0); Mean Platelet Volume 7.4 fL (7.0-11.0); Mono # (Auto) 0.2 th/mm3 (0.0-0.9); Mono % (Auto) 2.8 % (0.0-8.0); Neut # (Auto) 7.7 th/mm3 (1.8-7.7); Neut % (Auto) 93.2 % (16.0-70.0); Platelet Count 265 th/mm3 (150-450); Red Blood Count 4.02 mil/mm3 (4.00-5.30); Red Cell Distribution Width 15.4 % (11.6-17.2); White Blood Count 8.2 th/mm3 (4.0-11.0)
[2018-01-21 02:29] LABS: Anion Gap 11 meq/L (5-15)
[2018-01-21 02:35] LABS: Alanine Aminotransferase 54 U/L (10-53); Albumin 2.6 g/dL (3.4-5.0); Alkaline Phosphatase 64 U/L (45-117); Aspartate Aminotransferase 23 U/L (15-37); Blood Urea Nitrogen 42 mg/dL (7-18); Calcium 7.2 mg/dL (8.5-10.1); Carbon Dioxide 24.2 meq/L (21.0-32.0); Chloride 106 meq/L (98-107); Creatine Kinase 164 U/L (26-192); Glomerular Filtration Rate 27 mL/min (>89); Glucose,Random 201 mg/dL (74-106); Potassium 4.3 meq/L (3.5-5.1); Sodium 141 meq/L (136-145); Total Protein 6.2 g/dL (6.4-8.2); Troponin I 0.05 ng/mL (0.02-0.05)
[2018-01-21 02:55] LABS: Creatine Kinase MB 7.2 ng/mL (0.5-3.6)
[2018-01-21] MEDS: Levothyroxine 112 MCG Tablet PO SCH (05:17)
--- NOTE | 2018-01-21 08:26 | P.PNFP ---
Subjective Interval history: Patient seen and examined bedside this morning. Patient states that she feels about the same from yesterday. She still feels like she has mucus in her chest. She denies any chest pain. He continues to feel short of breath if she walks across the room which has been stable over the last 3 weeks. She has not been coughing. Denies any dizziness. No fever/chills. <Zoey Umanzor - 01/21/18 09:19> Results - Labs Result diagrams: 01/21/18 01:38 01/21/18 01:38 <Dani Sy - 01/21/18 20:27> Abnormal lab results 01/20/18 01/21/18 01/21/18 Range/Units 20:19 01:38 01:38 Neut % (Auto) 93.2 H (16.0-70.0) % Lymph % (Auto) 3.7 L (9.0-44.0) % Lymph # (Auto) 0.3 L (1.0-4.8) th/mm3 BUN 42 H (7-18) mg/dL Creatinine 1.83 H (0.50-1.00) mg/dL Estimated GFR 27 L (>89) mL/min POC Glucose 219 H (68-110) mg/dl Random Glucose 201 H (74-106) mg/dL Calcium 7.2 L* D (8.5-10.1) mg/dL Calcium Adj for Albumin 8.3 L (8.5-10.1) mg/dL ALT 54 H (10-53) U/L Total Creatine Kinase (26-192) U/L CK-MB (CK-2) 7.2 H (0.5-3.6) ng/mL Total Protein 6.2 L D (6.4-8.2) g/dL Albumin 2.6 L (3.4-5.0) g/dL 01/21/18 01/21/18 01/21/18 Range/Units 09:47 17:03 19:34 Neut % (Auto) (16.0-70.0) % Lymph % (Auto) (9.0-44.0) % Lymph # (Auto) (1.0-4.8) th/mm3 BUN (7-18) mg/dL Creatinine (0.50-1.00) mg/dL Estimated GFR (>89) mL/min POC Glucose 194 H 185 H (68-110) mg/dl Random Glucose (74-106) mg/dL Calcium (8.5-10.1) mg/dL Calcium Adj for Albumin (8.5-10.1) mg/dL ALT (10-53) U/L Total Creatine Kinase 229 H (26-192) U/L CK-MB (CK-2) 8.8 H (0.5-3.6) ng/mL Total Protein (6.4-8.2) g/dL Albumin (3.4-5.0) g/dL Short CBC 01/21/18 Range/Units 01:38 WBC 8.2 (4.0-11.0) th/mm3 Hgb 13.0 (11.6-15.3) gm/dL Hct 39.4 (35.0-46.0) % Plt Count 265 (150-450) th/mm3 BMP 01/21/18 01:38 Sodium 141 Potassium 4.3 Chloride 106 Carbon Dioxide 24.2 BUN 42 H Creatinine 1.83 H Calcium 7.2 L* D Cardiac Enzymes 01/20/18 01/21/18 01/21/18 Range/Units 20:02 01:38 09:47 Total Creatine Kinase 175 164 229 H (26-192) U/L CK-MB (CK-2) 7.2 H 8.8 H (0.5-3.6) ng/mL Troponin I 0.05 0.05 (0.02-0.05) ng/mL Liver Function 01/21/18 Range/Units 01:38 Total Bilirubin 0.2 (0.2-1.0) mg/dL AST 23 (15-37) U/L ALT 54 H (10-53) U/L Alkaline Phosphatase 64 (45-117) U/L Albumin 2.6 L (3.4-5.0) g/dL <Dani Sy - 01/21/18 20:27> Abnormal lab results 01/20/18 01/20/18 01/20/18 Range/Units 13:00 13:00 17:14 WBC 12.2 H (4.0-11.0) th/mm3 MCV 100.8 H (80.0-100.0) fL Neut % (Auto) 89.3 H (16.0-70.0) % Lymph % (Auto) 4.7 L (9.0-44.0) % Neut # (Auto) 10.9 H (1.8-7.7) th/mm3 Lymph # (Auto) 0.6 L (1.0-4.8) th/mm3 BUN 30 H (7-18) mg/dL Creatinine 1.51 H (0.50-1.00) mg/dL Estimated GFR 33 L (>89) mL/min POC Glucose 197 H (68-110) mg/dl Random Glucose (74-106) mg/dL Calcium 8.2 L (8.5-10.1) mg/dL Calcium Adj for Albumin (8.5-10.1) mg/dL AST 42 H (15-37) U/L ALT 73 H (10-53) U/L Total Creatine Kinase 200 H (26-192) U/L CK-MB (CK-2) 8.8 H (0.5-3.6) ng/mL CK-MB (CK-2) % 4.4 H* (0.0-4.0) % Total Protein (6.4-8.2) g/dL Albumin 3.1 L (3.4-5.0) g/dL 01/20/18 01/21/18 01/21/18 Range/Units 20:19 01:38 01:38 WBC (4.0-11.0) th/mm3 MCV (80.0-100.0) fL Neut % (Auto) 93.2 H (16.0-70.0) % Lymph % (Auto) 3.7 L (9.0-44.0) % Neut # (Auto) (1.8-7.7) th/mm3 Lymph # (Auto) 0.3 L (1.0-4.8) th/mm3 BUN 42 H (7-18) mg/dL Creatinine 1.83 H (0.50-1.00) mg/dL Estimated GFR 27 L (>89) mL/min POC Glucose 219 H (68-110) mg/dl Random Glucose 201 H (74-106) mg/dL Calcium 7.2 L* D (8.5-10.1) mg/dL Calcium Adj for Albumin 8.3 L (8.5-10.1) mg/dL AST (15-37) U/L ALT 54 H (10-53) U/L Total Creatine Kinase (26-192) U/L CK-MB (CK-2) 7.2 H (0.5-3.6) ng/mL CK-MB (CK-2) % (0.0-4.0) % Total Protein 6.2 L D (6.4-8.2) g/dL Albumin 2.6 L (3.4-5.0) g/dL Short CBC 01/20/18 01/21/18 Range/Units 13:00 01:38 WBC 12.2 H 8.2 (4.0-11.0) th/mm3 Hgb 14.8 13.0 (11.6-15.3) gm/dL Hct 46.0 39.4 (35.0-46.0) % Plt Count 332 265 (150-450) th/mm3 BMP 01/20/18 01/21/18 13:00 01:38 Sodium 141 141 Potassium 4.6 4.3 Chloride 103 106 Carbon Dioxide 29.3 24.2 BUN 30 H 42 H Creatinine 1.51 H 1.83 H Calcium 8.2 L 7.2 L* D Cardiac Enzymes 01/20/18 01/20/18 01/21/18 Range/Units 13:00 20:02 01:38 Total Creatine Kinase 200 H 175 164 (26-192) U/L CK-MB (CK-2) 8.8 H 7.2 H (0.5-3.6) ng/mL Troponin I 0.05 0.05 0.05 (0.02-0.05) ng/mL Liver Function 01/20/18 01/21/18 Range/Units 13:00 01:38 Total Bilirubin 0.8 0.2 (0.2-1.0) mg/dL AST 42 H 23 (15-37) U/L ALT 73 H 54 H (10-53) U/L Alkaline Phosphatase 77 64 (45-117) U/L Albumin 3.1 L 2.6 L (3.4-5.0) g/dL <Zoey Umanzor - 01/21/18 08:26> - Imaging Impressions Chest X-Ray 01/20/18 12:58 CONCLUSION: 1. Mild opacity at the right lung base has an appearance favoring atelectasis or consolidation and small pleural effusion. 2. Stable 5 mm right lower lobe noncalcified pulmonary nodule. <Zoey Umanzor - 01/21/18 08:26> Physical Exam Vital signs: Vital Signs 01/21/18 00:00 01/21/18 00:38 01/21/18 03:33 Temperature 97.1 F L Pulse Rate 97 H 91 H 89 Respiratory Rate 18 18 20 Blood Pressure 134/67 Pulse Oximetry 95 94 L 01/21/18 04:00 01/21/18 07:30 01/21/18 08:00 Temperature 97.9 F 97.6 F Pulse Rate 95 H 97 H 92 H Respiratory Rate 18 20 16 Blood Pressure 138/73 177/92 H Pulse Oximetry 93 L 97 97 01/21/18 11:39 01/21/18 12:00 01/21/18 16:00 Temperature 97.7 F 97.2 F L Pulse Rate 92 H 92 H 97 H Respiratory Rate 16 16 16 Blood Pressure 133/83 130/76 Pulse Oximetry 96 94 L 01/21/18 16:22 01/21/18 20:12 Temperature Pulse Rate 89 89 Respiratory Rate 16 16 Blood Pressure Pulse Oximetry 94 L Intake & Output 01/21/18 01/21/18 01/22/18 06:59 18:59 06:59 Intake Total 1600 / 1600 660 / 660 Output Total 200 / 200 540 / 540 Balance 1400 / 1400 120 / 120 Weight 90.9 kg Intake: IV 1000 / 1000 100 / 100 NS Inj 1,000 ML @ 130 mls/hr IV 1000 / 1000 .CONT .Q7H42M [facility] Rx#:[id number] Rocephin Inj 1,000 MG In NS Inj 100 / 100 100 ML @ 200 mls/hr IV.SIG Q24H [facility] Rx#:[id number] Oral 600 / 600 560 / 560 Output: Urine 200 / 200 540 / 540 Other: Date of Last Bowel Movement 01/21/18 01/20/18 # Bowel Movements 1 <Dani Sy - 01/21/18 20:27> Vital Signs 01/20/18 12:37 01/20/18 12:59 01/20/18 13:13 Temperature 97.3 F L Pulse Rate 89 86 81 Respiratory Rate 22 24 22 Blood Pressure 173/87 H 190/86 H Pulse Oximetry 88 L 88 L 94 L 01/20/18 13:59 01/20/18 14:00 01/20/18 16:48 Temperature Pulse Rate 85 85 Respiratory Rate 16 16 Blood Pressure 160/73 H Pulse Oximetry 92 L 96 01/20/18 18:00 01/20/18 20:00 01/21/18 00:00 Temperature 97.2 F L 97.9 F 97.1 F L Pulse Rate 95 H 103 H 97 H Respiratory Rate 19 18 18 Blood Pressure 143/65 H 167/73 H 134/67 Pulse Oximetry 92 L 95 95 01/21/18 00:38 01/21/18 03:33 01/21/18 04:00 Temperature 97.9 F Pulse Rate 91 H 89 95 H Respiratory Rate 18 20 18 Blood Pressure 138/73 Pulse Oximetry 94 L 93 L 01/21/18 07:30 Temperature Pulse Rate 97 H Respiratory Rate 20 Blood Pressure Pulse Oximetry 97 Intake & Output 01/20/18 01/21/18 01/21/18 18:59 06:59 18:59 Intake Total 350 / 350 1600 / 1600 Output Total 200 / 200 Balance 350 / 350 1400 / 1400 Weight 89.6 kg 90.9 kg Intake: IV 350 / 350 1000 / 1000 NS Inj 1,000 ML @ 130 mls/hr IV 1000 / 1000 .CONT .Q7H42M [facility] Rx#:[id number] Azithromycin Inj 500 MG In NS 250 / 250 Inj 250 ML @ 250 mls/hr IV.SIG ONCE ONE Rx#:[id number] Rocephin Inj 1,000 MG In NS Inj 100 / 100 100 ML @ 200 mls/hr IV.SIG ONCE ONE Rx#:[id number] Oral 600 / 600 Output: Urine 200 / 200 Other: Date of Last Bowel Movement 01/21/18 # Bowel Movements 1 Weight On Admission 89.6 kg <Zoey Umanzor - 01/21/18 09:19> Narrative: Patient is an 82-year-old female. GENERAL: Well developed, obese female who answers questions appropriately. She is sitting in exam room with her daughter in no acute distress. SKIN: Warm and dry, light erythematous macular rash over legs and arms, chronic EYES: PERRLA. EOMI. Lids and conjunctivae reveal no gross abnormality. No scleral icterus. ENT: Dry mucous membranes. Oropharynx unremarkable. No rhinorrhea. Tympanic membranes normal bilaterally. NECK: No JVD. + cervical lymphadenopathy appreciated. Trachea midline. RESPIRATORY: No increased work of breathing or accessory muscle use. Decreased breath sounds at the bases. No wheezing. No crackles. CARDIOVASCULAR: Regular rate and rhythm without MGR appreciated. ABDOMEN: Obese and slightly distended. Non tender. MUSCULOSKELETAL: No cyanosis or edema. No calf tenderness, warmth, erythema. NEUROLOGICAL: Afocal. AAO x3. Normal speech and judgment. <Zoey Umanzor - 01/21/18 09:19> Assessment and Plan - Assessment (1) Pneumonia Code(s): J18.9 - Pneumonia, unspecified organism Status: Acute (2) COPD exacerbation Code(s): J44.1 - Chronic obstructive pulmonary disease with (acute) exacerbation Status: Acute (3) Elevated CK-MB level Code(s): R74.8 - Abnormal levels of other serum enzymes Status: Acute (4) Intertrigo Code(s): L30.4 - Erythema intertrigo Status: Acute (5) CKD (chronic kidney disease) stage 3, GFR 30-59 ml/min Code(s): N18.3 - Chronic kidney disease, stage 3 (moderate) Status: Chronic (6) Hypothyroidism Code(s): E03.9 - Hypothyroidism, unspecified Status: Chronic (7) HTN (hypertension) Code(s): I10 - Essential (primary) hypertension Status: Chronic (8) Type 2 diabetes mellitus Code(s): E11.9 - Type 2 diabetes mellitus without complications Status: Chronic (9) HLD (hyperlipidemia) Code(s): E78.5 - Hyperlipidemia, unspecified Status: Chronic (10) Depression Code(s): F32.9 - Major depressive disorder, single episode, unspecified Status : Chronic <Dani Sy - 01/21/18 20:27> (1) Pneumonia Code(s): J18.9 - Pneumonia, unspecified organism Status: Acute Plan: 3 cardinal symptoms of COPD exacerbation, hypoxia, chest x-ray concerning for pneumonia (consolidation vs effusion). Plan to admit to treat for pneumonia with IV antibiotics, oxygen as needed. Follow up blood cultures. s/p cipro x 10 day course -follow up blood cultures: negative x 1 day -O2 sats: 88-97%, afebrile, HR 81-103 Cont Duonebs Cont Ceftriazone 1g q4h, Azithromycin 500mg q24h f/u repeat CXR in AM If pt improves clinically over next 1-2 days, will likely d/c on Augmentin PO x 7 days with steroids continued (2) COPD exacerbation Code(s): J44.1 - Chronic obstructive pulmonary disease with (acute) exacerbation Status: Acute Plan: s/p steroid taper, s/p solumedrol in ED -prednisone 40 mg po qd -DuoNeb q4h bay, albuterol neb q2h PRN -follow up sputum culture, gram stain -titrate O2 as needed to maintain O2 sat > 88% Start LABA with inhaled steroid ; Symbicort (3) Elevated CK-MB level Code(s): R74.8 - Abnormal levels of other serum enzymes Status: Acute Plan: troponin stable x 3 T-wave inversions on EKG, stable x 3 - f/u with cardiology for stress test, topical nitro last used at 6PM last night (4) Intertrigo Code(s): L30.4 - Erythema intertrigo Status: Acute Plan: -clotrimazole topically tid -skin care protocol ordered (5) CKD (chronic kidney disease) stage 3, GFR 30-59 ml/min Code(s): N18.3 - Chronic kidney disease, stage 3 (moderate) Status: Chronic Plan: 08/01/17 Cr of 1.87, 09/06/17 Cr of 1.41, 01/20/18 Cr of 1.51 -CrCl > 30 Increased today to 1.83, however similar to baseline in 08/01 (6) Hypothyroidism Code(s): E03.9 - Hypothyroidism, unspecified Status: Chronic Plan: -continue home medication of levothyroxine 112 mcg po qd (7) HTN (hypertension) Code(s): I10 - Essential (primary) hypertension Status: Chronic Plan: -continue home medication of amlodipine 5 mg po qd (8) Type 2 diabetes mellitus Code(s): E11.9 - Type 2 diabetes mellitus without complications Status: Chronic Plan: -low dose SSI achs -hypoglycemia protocol ordered -hold home med (9) HLD (hyperlipidemia) Code(s): E78.5 - Hyperlipidemia, unspecified Status: Chronic Plan: -continue home medication of pravastatin 80mg po qd (10) Depression Code(s): F32.9 - Major depressive disorder, single episode, unspecified Status : Chronic Plan: -continue home medication of Lexapro 10 mg po qd <Zoey Umanzor - 01/21/18 09:21> - Assessment and Plan Patient is an 82 year old female with a history of COPD, not on home oxygen, CKD stage III, hypertension, diabetes, hypothyroidism, hyperlipidemia, depression who presents with increased dyspnea, 3 out of 3 cardinal symptoms of COPD exacerbation, hypoxia, chest x-ray concerning for pneumonia. Plan to admit to treat for pneumonia with IV antibiotics, oxygen as needed. Follow up blood cultures. We will treat COPD exacerbation with IV steroids, nebulized breathing treatments. ACS workup negative. <Zoey Umanzor - 01/21/18 09:22> - Attending Attestation The exam, history, and the medical decision-making described in the above note were completed with the assistance of the resident physician. I reviewed and agree with the findings presented. I attest that I had a [id number] encounter with the patient on the same day, and personally performed and documented my assessment and findings in the medical record. Seen and examined with the resident. Patient reports improvement in her symptoms this morning. She is sitting up in bed and appears comfortable. She does have a noticeably wet sound cough during our history taking. She reports that her baseline respiratory functioning includes becoming short of breath from walking to the mailbox. She has decreased respiratory functioning over the past 3 weeks. Today she feels a little better after IV steroids and antibiotics. She is maintaining normal oxygen saturation on 3 liters of oxygen. We will lower our target oxygenation to no more than 93% to avoid over- oxygenation. We will also add a long acting beta agonist and inhaled corticosteroid given the progression of her COPD. We discussed smoking habits, which she admits to "vaping". She is not complaining of chest pain or significant shortness of breath at rest. On examination, her lungs are relatively clear with prolonged expiratory phase, and some fine crackles at the lung bases. She does not have apparent edema on exam and no JVD. Her heart sounds are regular rate and rhythm. She has a benign abdominal exam. Her creatinine increased overnight with BUN increasing in a pattern suggestive of prerenal injury, on top of chronic kidney disease. I believe she needs another night of monitoring with reevaluation of renal function tomorrow. She reports improved appetite and drinking fluids, so hopefully her renal function will improve. We will plan on a walk test before discharge to assess need for home oxygen. She also has a carbon grinder and will need to follow with them closely, as well as her PCP. <Dani Sy Adeline - 01/21/18 20:27> <Zoey Umanzor - Last Filed: 01/21/18 09:21> (1) Pneumonia Qualifiers: Pneumonia type: due to unspecified organism Laterality: right Lung location : lower lobe of lung Qualified Code(s): J18.1 - Lobar pneumonia, unspecified organism <Dani Sy Adeline - Last Filed: 01/21/18 20:27> (1) Pneumonia Qualifiers: Pneumonia type: due to unspecified organism Laterality: right Lung location : lower lobe of lung Qualified Code(s): J18.1 - Lobar pneumonia, unspecified organism <Zoey Umanzor - Last Filed: 01/21/18 09:21> (1) Pneumonia Qualifiers: Pneumonia type: due to unspecified organism Laterality: right Lung location : lower lobe of lung Qualified Code(s): J18.1 - Lobar pneumonia, unspecified organism <Dani Sy - Last Filed: 01/21/18 20:27> (1) Pneumonia Qualifiers: Pneumonia type: due to unspecified organism Laterality: right Lung location : lower lobe of lung Qualified Code(s): J18.1 - Lobar pneumonia, unspecified organism
[2018-01-21] MEDS ORDERED: Azithromycin 250 MG Tablet PO SCH (09:00)
[2018-01-21] MEDS: Escitalopram 10 MG Tablet PO SCH (09:14)
[2018-01-21] MEDS: amLODIPine 5 MG Tablet PO SCH (09:14)
[2018-01-21] MEDS: Clotrimazole 1% Cream 15 GM Tube TOPICAL SCH ×3 (09:16→18:08)
[2018-01-21] MEDS: MethylPREDNISolone Sod Succinate Inj 40 MG/ML Vial IV.PUSH SCH ×3 (09:17→20:22)
[2018-01-21] MEDS: Insulin NovoLOG Aspart Correctional Sugar Inj SQ SCH ×4 (09:58→20:23)
[2018-01-21 11:08] LABS: CKMB Percent 3.8 % (0.0-4.0); Creatine Kinase MB 8.8 ng/mL (0.5-3.6)
[2018-01-21] MEDS: Budesonide-Formoterol 160/4.5 MCG 6 GM Inhaler INH SCH ×2 (12:58→20:23)
[2018-01-21] MEDS: Azithromycin 250 MG Tablet PO SCH (13:24)
[2018-01-21] MEDS: Enoxaparin Inj 40 MG/0.4 ML Syringe SQ SCH (17:32)
--- NOTE | 2018-01-21 21:19 | ECG ---
Date Performed: 01/20/2018 Time Performed: 14:16:00 PTAGE: 82 years EKG: Sinus rhythm WITH OCCASIONAL SUPRAVENTRICULAR PREMATURE COMPLEXES LEFT ANTERIOR FASCICULAR BLOCK RIGHT BUNDLE BRA NCH BLOCK ABNORMAL ECG NO PREVIOUS TRACING DOCTOR: Bienvenido Givens Interpretating Date/Time 01/21/2018 21:19:04
--- NOTE | 2018-01-21 21:20 | ECG ---
Date Performed: 01/20/2018 Time Performed: 21:42:48 PTAGE: 82 years EKG: Sinus rhythm POSSIBLE LEFT ATRIAL ENLARGEMENT RIGHT BUNDLE BRANCH BLOCK LEFT ANTERIOR FASCICULAR BLOCK Since the previous tracing, no significant change noted ABNORMAL ECG PREVIOUS TRACING : 01/20/2018 14.16 DOCTOR: Bienvenido Givens Interpretating Date/Time 01/21/2018 21:19:32
--- NOTE | 2018-01-21 21:22 | ECG ---
Date Performed: 01/21/2018 Time Performed: 10:19:57 PTAGE: 82 years EKG: Sinus rhythm WITH OCCASIONAL SUPRAVENTRICULAR PREMATURE COMPLEXES POSSIBLE LEFT ATRIAL ENLARGEMENT LEFT ANTERIOR FASCICULAR BLOCK RIGHT BUNDLE BRANCH BLOCK Since the previous tracing, no significant change noted AB NORMAL ECG PREVIOUS TRACING : 01/20/2018 21.42 DOCTOR: Bienvenido Givens Interpretating Date/Time 01/21/2018 21:20:01
[2018-01-22] MEDS: MethylPREDNISolone Sod Succinate Inj 40 MG/ML Vial IV.PUSH SCH (03:37)
[2018-01-22] MEDS: Levothyroxine 112 MCG Tablet PO SCH (05:06)
[2018-01-22 06:58] LABS: Baso % (Auto) 0.1 % (0.0-2.0); Hematocrit 39.4 % (35.0-46.0); Lymph # (Auto) 0.2 th/mm3 (1.0-4.8); Lymph % (Auto) 2.5 % (9.0-44.0); Mean Corpuscular Hemoglobin 32.9 pg (27.0-34.0); Mean Corpuscular Volume 99.5 fL (80.0-100.0); Mean Platelet Volume 7.7 fL (7.0-11.0); Mono # (Auto) 0.1 th/mm3 (0.0-0.9); Mono % (Auto) 1.4 % (0.0-8.0); Neut # (Auto) 8.8 th/mm3 (1.8-7.7); Platelet Count 282 th/mm3 (150-450); Red Blood Count 3.96 mil/mm3 (4.00-5.30); Red Cell Distribution Width 15.5 % (11.6-17.2); White Blood Count 9.2 th/mm3 (4.0-11.0)
[2018-01-22 07:32] LABS: Alanine Aminotransferase 60 U/L (10-53); Albumin 3.1 g/dL (3.4-5.0); Alkaline Phosphatase 57 U/L (45-117); Anion Gap 9 meq/L (5-15); Aspartate Aminotransferase 27 U/L (15-37); Blood Urea Nitrogen 43 mg/dL (7-18); Calcium 8.3 mg/dL (8.5-10.1); Carbon Dioxide 22.4 meq/L (21.0-32.0); Chloride 106 meq/L (98-107); Glomerular Filtration Rate 31 mL/min (>89); Glucose,Random 176 mg/dL (74-106); Potassium 4.7 meq/L (3.5-5.1); Sodium 137 meq/L (136-145); Total Protein 6.6 g/dL (6.4-8.2)
--- NOTE | 2018-01-22 09:16 | P.PNFP ---
Subjective Interval history: Visited patient this morning with Dr. Patel. Patient was sleeping when we entered the room. After waking up, she relates to us that she is feeling better as far as her breathing goes. She reports feeling close to her baseline regarding her respiratory status. She also reports eating and drinking good yesterday. The nurse reports to us, however, that her oxygen saturations would drop to the low 80's during sleep after her nasal cannula kept falling off. Of note, the patient does have sleep apnea. She has not gotten up much from the bed and moved around. She reports no chest pain, abdominal pain, nausea, vomiting, diarrhea. No lower extremity edema. Coughing is improving, but still present. Wet sounding cough but without sputum production. No fevers overnight. Results - Labs Result diagrams: 01/22/18 05:11 01/22/18 05:11 Abnormal lab results 01/21/18 01/21/18 01/21/18 Range/Units 09:47 17:03 19:34 RBC (4.00-5.30) mil/mm3 Neut % (Auto) (16.0-70.0) % Lymph % (Auto) (9.0-44.0) % Neut # (Auto) (1.8-7.7) th/mm3 Lymph # (Auto) (1.0-4.8) th/mm3 BUN (7-18) mg/dL Creatinine (0.50-1.00) mg/dL Estimated GFR (>89) mL/min POC Glucose 194 H 185 H (68-110) mg/dl Random Glucose (74-106) mg/dL Calcium (8.5-10.1) mg/dL ALT (10-53) U/L Total Creatine Kinase 229 H (26-192) U/L CK-MB (CK-2) 8.8 H (0.5-3.6) ng/mL Albumin (3.4-5.0) g/dL 01/22/18 01/22/18 Range/Units 05:11 05:11 RBC 3.96 L (4.00-5.30) mil/mm3 Neut % (Auto) 96.0 H (16.0-70.0) % Lymph % (Auto) 2.5 L (9.0-44.0) % Neut # (Auto) 8.8 H (1.8-7.7) th/mm3 Lymph # (Auto) 0.2 L (1.0-4.8) th/mm3 BUN 43 H (7-18) mg/dL Creatinine 1.60 H (0.50-1.00) mg/dL Estimated GFR 31 L (>89) mL/min POC Glucose (68-110) mg/dl Random Glucose 176 H (74-106) mg/dL Calcium 8.3 L D (8.5-10.1) mg/dL ALT 60 H (10-53) U/L Total Creatine Kinase (26-192) U/L CK-MB (CK-2) (0.5-3.6) ng/mL Albumin 3.1 L (3.4-5.0) g/dL Short CBC 01/22/18 Range/Units 05:11 WBC 9.2 (4.0-11.0) th/mm3 Hgb 13.0 (11.6-15.3) gm/dL Hct 39.4 (35.0-46.0) % Plt Count 282 (150-450) th/mm3 BMP 01/22/18 05:11 Sodium 137 Potassium 4.7 Chloride 106 Carbon Dioxide 22.4 BUN 43 H Creatinine 1.60 H Calcium 8.3 L D Cardiac Enzymes 01/21/18 Range/Units 09:47 Total Creatine Kinase 229 H (26-192) U/L CK-MB (CK-2) 8.8 H (0.5-3.6) ng/mL Liver Function 01/22/18 Range/Units 05:11 Total Bilirubin 0.3 (0.2-1.0) mg/dL AST 27 (15-37) U/L ALT 60 H (10-53) U/L Alkaline Phosphatase 57 (45-117) U/L Albumin 3.1 L (3.4-5.0) g/dL Physical Exam Vital signs: Vital Signs 01/21/18 11:39 01/21/18 12:00 01/21/18 16:00 Temperature 97.7 F 97.2 F L Pulse Rate 92 H 92 H 97 H Respiratory Rate 16 16 16 Blood Pressure 133/83 130/76 Pulse Oximetry 96 94 L 01/21/18 16:22 01/21/18 20:00 01/21/18 20:12 Temperature 97.9 F Pulse Rate 89 84 89 Respiratory Rate 16 19 16 Blood Pressure 142/82 H Pulse Oximetry 95 94 L 01/21/18 20:30 01/21/18 23:50 01/22/18 00:00 Temperature 97.9 F Pulse Rate 87 87 Respiratory Rate 16 18 Blood Pressure 131/97 H Pulse Oximetry 95 94 L 01/22/18 03:47 01/22/18 04:00 01/22/18 04:29 Temperature 97.2 F L Pulse Rate 89 89 87 Respiratory Rate 16 19 Blood Pressure 137/93 H Pulse Oximetry 94 L 01/22/18 07:59 Temperature Pulse Rate 90 Respiratory Rate 16 Blood Pressure Pulse Oximetry 92 L Intake & Output 01/21/18 01/22/18 01/22/18 18:59 06:59 18:59 Intake Total 660 / 660 1600 / 1600 Output Total 540 / 540 500 / 500 Balance 120 / 120 1100 / 1100 Weight 96.3 kg Intake: IV 100 / 100 1000 / 1000 NS Inj 1,000 ML @ 130 mls/hr IV 1000 / 1000 .CONT .[id number] BAY Rx#:[id number] Rocephin Inj 1,000 MG In NS Inj 100 / 100 100 ML @ 200 mls/hr IV.SIG Q24H BAY Rx#:[id number] Oral 560 / 560 600 / 600 Output: Urine 540 / 540 500 / 500 Other: # Voids 2 Date of Last Bowel Movement 01/20/18 01/20/18 Narrative: General: Sitting up in bed, no distress Skin: No rashes or lesions HEENT: Normocephalic, no conjunctivitis, no nasal discharge Neck: No lymphadenopathy CV: RRR, no murmurs, rubs, or gallops, regular pulses Lungs: Mild wheezing worse on the right side, somewhat prolonged expiratory phase. Talking in complete sentences. Wearing nasal cannula. We removed the nasal cannula, O2 saturation was low 90's at rest. We stood her up from the bed and O2 saturation dropped to 87% standing. Walked to the door and O2 saturation remained in the upper 80's. Abdomen: Soft, nontender, nondistended, no organomegaly Ext: No lower extremity edema. She requires a cane to walk and walks at a slow cautious pace. Neuro: Awake, alert, oriented to person, place, and situation, somewhat circumferential responses to questions Assessment and Plan - Assessment (1) Pneumonia Code(s): J18.9 - Pneumonia, unspecified organism Status: Acute Plan: 3 cardinal symptoms of COPD exacerbation, hypoxia, chest x-ray concerning for pneumonia (consolidation vs effusion). Status post 10 day course of ciprofloxacin outpatient. Remaining afebrile, symptoms starting to improve. - Continue Duoneb treatments, albuterol as needed - Switch IV solumedrol to oral prednisone today - O2 supplementation to target 92% O2, avoid over-oxygenation - Failed our O2 walk test on 01/22/18. She may need to be discharged on home O2. - Will give influenza vaccine. Investigate whether she needs pneumonia vaccine, she believes she may have one part of the two dose series. - Outpatient antibiotic regimen may be high dose amoxicillin and azithromycin, as she already had a fluoroquinolone. (2) COPD exacerbation Code(s): J44.1 - Chronic obstructive pulmonary disease with (acute) exacerbation Status: Acute Plan: -prednisone 40 mg po qd -DuoNeb q4h bay, albuterol neb q2h PRN -follow up sputum culture, gram stain if able (not producing sputum for culture ) -titrate O2 as needed to maintain O2 sat about 92% - Started LABA with inhaled steroid ; Symbicort - Counseling on smoking cessation (reports that she "vapes" (3) Intertrigo Code(s): L30.4 - Erythema intertrigo Status: Acute Plan: -clotrimazole topically tid -skin care protocol ordered (4) CKD (chronic kidney disease) stage 3, GFR 30-59 ml/min Code(s): N18.3 - Chronic kidney disease, stage 3 (moderate) Status: Chronic Plan: 08/01/17 Cr of 1.87, 09/06/17 Cr of 1.41, 01/20/18 Cr of 1.51 -CrCl > 30 Improved today back to her baseline creatinine. Eating and drinking normally now , initial bump likely prerenal. (5) Hypothyroidism Code(s): E03.9 - Hypothyroidism, unspecified Status: Chronic Plan: -continue home medication of levothyroxine 112 mcg po qd (6) HTN (hypertension) Code(s): I10 - Essential (primary) hypertension Status: Chronic Plan: -continue home medication of amlodipine 5 mg po qd (7) Type 2 diabetes mellitus Code(s): E11.9 - Type 2 diabetes mellitus without complications Status: Chronic Plan: -low dose SSI achs -hypoglycemia protocol ordered -hold home med (8) HLD (hyperlipidemia) Code(s): E78.5 - Hyperlipidemia, unspecified Status: Chronic Plan: -continue home medication of pravastatin 80mg po qd (9) Depression Code(s): F32.9 - Major depressive disorder, single episode, unspecified Status : Chronic Plan: -continue home medication of Lexapro 10 mg po qd - Assessment and Plan Patient is an 82 year old female with a history of COPD, not on home oxygen, CKD stage III, hypertension, diabetes, hypothyroidism, hyperlipidemia, depression who presents with increased dyspnea, 3 out of 3 cardinal symptoms of COPD exacerbation, hypoxia, chest x-ray concerning for pneumonia. Plan to admit to treat for pneumonia with IV antibiotics, oxygen as needed. Follow up blood cultures. We will treat COPD exacerbation with steroids, nebulized breathing treatments. Discussed Condition With: Seen and discussed with Dr. Patel. Discharge Planning: We discussed case with her daughter Carrie Manning (number in the chart). The ultimate plan is for patient to move in with her daughter in [place]. However, the house is currently being remodeled, and patient cannot move in yet. We will get case management on board to assess her functional status and for recommendations on placement. At this time, she would be unsafe to go back home where she lives alone with her dog. Of note, we performed a walk test with patient and she had O2 saturations 86-87% just walking to the door in her room, so she will likely need home O2. (1) Pneumonia Qualifiers: Pneumonia type: due to unspecified organism Laterality: right Lung location : lower lobe of lung Qualified Code(s): J18.1 - Lobar pneumonia, unspecified organism
[2018-01-22] MEDS ORDERED: Influenza (Quadrivalent) Vaccine 0.5 ML Syringe IM ONE (09:30)
[2018-01-22] MEDS: predniSONE 20 MG Tablet PO SCH (09:57)
[2018-01-22] MEDS: amLODIPine 5 MG Tablet PO SCH (09:57)
[2018-01-22] MEDS: Escitalopram 10 MG Tablet PO SCH (09:57)
[2018-01-22] MEDS: Budesonide-Formoterol 160/4.5 MCG 6 GM Inhaler INH SCH ×2 (09:58→20:31)
[2018-01-22] MEDS: Insulin NovoLOG Aspart Correctional Sugar Inj SQ SCH ×4 (09:59→20:30)
[2018-01-22] MEDS: Clotrimazole 1% Cream 15 GM Tube TOPICAL SCH ×3 (10:00→18:18)
--- NOTE | 2018-01-22 10:57 | XR ---
EXAM DATE: 01/22/2018 10:51 AM EST AGE/SEX: 82 years / Female INDICATIONS: . Short of Breath CLINICAL DATA: This is the patient's subsequent encounter. Patient reports that signs and symptoms h ave been present for 2 days and indicates a pain score of 0/10. MEDICAL/SURGICAL HISTORY: . : Chronic obstructive pulmonary disease. Carcinoma, breast. Diabete s mellitus type II. . Lumpectomy. COMPARISON: [facility] [place], CHEST 1V SINGLE AP, 01/20/2018. . FINDINGS: Generalized interstitial vascular congestion is developed. There is mild airspace disease in the left base. Heart is moderately enlarged. No significant pleural fluid accumulation is noted. CONCLUSION: Cardiomegaly with mild generalized interstitial vascular congestion. Mild left basilar airspace disease Electronically signed by: Valerio Mcintyre MD 01/22/2018 10:56 AM EST
[2018-01-22] MEDS: Azithromycin 250 MG Tablet PO SCH (14:30)
[2018-01-22] MEDS: Sod Chloride 0.9% Inj 1,000 ML IV.CONT SCH ×2 (14:34→15:13)
[2018-01-22] MEDS: Enoxaparin Inj 40 MG/0.4 ML Syringe SQ SCH (17:02)
[2018-01-23] MEDS: Levothyroxine 112 MCG Tablet PO SCH (05:10)
[2018-01-23] MEDS: Sod Chloride 0.9% Inj 1,000 ML IV.CONT SCH ×2 (07:16)
[2018-01-23 07:28] LABS: Baso % (Auto) 0.3 % (0.0-2.0); Eos % (Auto) 0.1 % (0.0-4.0); Hematocrit 44.2 % (35.0-46.0); Hemoglobin 14.6 gm/dL (11.6-15.3); Lymph # (Auto) 0.6 th/mm3 (1.0-4.8); Lymph % (Auto) 4.5 % (9.0-44.0); Mean Corpuscular Hemoglobin 33.2 pg (27.0-34.0); Mean Corpuscular Volume 100.5 fL (80.0-100.0); Mean Platelet Volume 7.8 fL (7.0-11.0); Mono # (Auto) 1.1 th/mm3 (0.0-0.9); Mono % (Auto) 8.6 % (0.0-8.0); Neut % (Auto) 86.5 % (16.0-70.0); Platelet Count 268 th/mm3 (150-450); Red Cell Distribution Width 15.8 % (11.6-17.2); White Blood Count 12.7 th/mm3 (4.0-11.0)
[2018-01-23 07:51] LABS: Albumin 3.3 g/dL (3.4-5.0); Anion Gap 8 meq/L (5-15); Aspartate Aminotransferase 27 U/L (15-37); Blood Urea Nitrogen 45 mg/dL (7-18); Calcium 8.8 mg/dL (8.5-10.1); Carbon Dioxide 23.8 meq/L (21.0-32.0); Chloride 107 meq/L (98-107); Glomerular Filtration Rate 29 mL/min (>89); Glucose,Random 132 mg/dL (74-106); Potassium 4.8 meq/L (3.5-5.1); Sodium 139 meq/L (136-145)
[2018-01-23 07:52] LABS: Alanine Aminotransferase 70 U/L (10-53)
[2018-01-23 07:54] LABS: Alkaline Phosphatase 61 U/L (45-117); Total Protein 7.3 g/dL (6.4-8.2)
[2018-01-23] MEDS: predniSONE 20 MG Tablet PO SCH (08:42)
[2018-01-23] MEDS: Escitalopram 10 MG Tablet PO SCH (08:42)
[2018-01-23] MEDS: amLODIPine 5 MG Tablet PO SCH (08:42)
[2018-01-23] MEDS: Budesonide-Formoterol 160/4.5 MCG 6 GM Inhaler INH SCH (08:43)
[2018-01-23] MEDS: Insulin NovoLOG Aspart Correctional Sugar Inj SQ SCH ×3 (08:43→16:30)
[2018-01-23] MEDS: Clotrimazole 1% Cream 15 GM Tube TOPICAL SCH ×3 (08:43→17:03)
--- NOTE | 2018-01-23 09:30 | P.PNFP ---
Subjective Interval history: Visited patient this morning. Patient was sleeping when I entered the room. After waking up a little, but still sleepy, she relates that she is feeling better as far as her breathing goes. She reports feeling close to her baseline regarding her respiratory status. We discussed discharge planning, and patient is amenable to going to SNF today. The nurse denies any problems overnight. Of note, the patient does have sleep apnea. She has not gotten up much from the bed and moved around. She denies chest pain, dyspnea. No fevers overnight. <Dani Martinez - 01/23/18 09:30> Results - Labs Result diagrams: 01/23/18 06:22 01/23/18 06:22 <Chani Reina - 01/23/18 11:34> Abnormal lab results 01/22/18 01/22/18 01/22/18 Range/Units 12:51 17:53 19:34 WBC (4.0-11.0) th/mm3 MCV (80.0-100.0) fL Neut % (Auto) (16.0-70.0) % Lymph % (Auto) (9.0-44.0) % [place] % (Auto) (0.0-8.0) % Neut # (Auto) (1.8-7.7) th/mm3 Lymph # (Auto) (1.0-4.8) th/mm3 [place] # (Auto) (0.0-0.9) th/mm3 BUN (7-18) mg/dL Creatinine (0.50-1.00) mg/dL Estimated GFR (>89) mL/min POC Glucose 165 H 170 H 198 H (68-110) mg/dl Random Glucose (74-106) mg/dL ALT (10-53) U/L Albumin (3.4-5.0) g/dL 01/23/18 01/23/18 01/23/18 Range/Units 06:22 06:22 08:42 WBC 12.7 H (4.0-11.0) th/mm3 MCV 100.5 H (80.0-100.0) fL Neut % (Auto) 86.5 H (16.0-70.0) % Lymph % (Auto) 4.5 L (9.0-44.0) % [place] % (Auto) 8.6 H (0.0-8.0) % Neut # (Auto) 11.0 H (1.8-7.7) th/mm3 Lymph # (Auto) 0.6 L (1.0-4.8) th/mm3 [place] # (Auto) 1.1 H (0.0-0.9) th/mm3 BUN 45 H (7-18) mg/dL Creatinine 1.68 H (0.50-1.00) mg/dL Estimated GFR 29 L (>89) mL/min POC Glucose 111 H (68-110) mg/dl Random Glucose 132 H (74-106) mg/dL ALT 70 H (10-53) U/L Albumin 3.3 L (3.4-5.0) g/dL Short CBC 01/23/18 Range/Units 06:22 WBC 12.7 H (4.0-11.0) th/mm3 Hgb 14.6 (11.6-15.3) gm/dL Hct 44.2 (35.0-46.0) % Plt Count 268 (150-450) th/mm3 BMP 01/23/18 06:22 Sodium 139 Potassium 4.8 Chloride 107 Carbon Dioxide 23.8 BUN 45 H Creatinine 1.68 H Calcium 8.8 Liver Function 01/23/18 Range/Units 06:22 Total Bilirubin 0.3 (0.2-1.0) mg/dL AST 27 (15-37) U/L ALT 70 H (10-53) U/L Alkaline Phosphatase 61 (45-117) U/L Albumin 3.3 L (3.4-5.0) g/dL <Chani Reina - 01/23/18 11:34> Abnormal lab results 01/22/18 01/22/18 01/22/18 Range/Units 09:29 12:51 17:53 WBC (4.0-11.0) th/mm3 MCV (80.0-100.0) fL Neut % (Auto) (16.0-70.0) % Lymph % (Auto) (9.0-44.0) % [place] % (Auto) (0.0-8.0) % Neut # (Auto) (1.8-7.7) th/mm3 Lymph # (Auto) (1.0-4.8) th/mm3 [place] # (Auto) (0.0-0.9) th/mm3 BUN (7-18) mg/dL Creatinine (0.50-1.00) mg/dL Estimated GFR (>89) mL/min POC Glucose 164 H 165 H 170 H (68-110) mg/dl Random Glucose (74-106) mg/dL ALT (10-53) U/L Albumin (3.4-5.0) g/dL 01/22/18 01/23/18 01/23/18 Range/Units 19:34 06:22 06:22 WBC 12.7 H (4.0-11.0) th/mm3 MCV 100.5 H (80.0-100.0) fL Neut % (Auto) 86.5 H (16.0-70.0) % Lymph % (Auto) 4.5 L (9.0-44.0) % [place] % (Auto) 8.6 H (0.0-8.0) % Neut # (Auto) 11.0 H (1.8-7.7) th/mm3 Lymph # (Auto) 0.6 L (1.0-4.8) th/mm3 [place] # (Auto) 1.1 H (0.0-0.9) th/mm3 BUN 45 H (7-18) mg/dL Creatinine 1.68 H (0.50-1.00) mg/dL Estimated GFR 29 L (>89) mL/min POC Glucose 198 H (68-110) mg/dl Random Glucose 132 H (74-106) mg/dL ALT 70 H (10-53) U/L Albumin 3.3 L (3.4-5.0) g/dL 01/23/18 Range/Units 08:42 WBC (4.0-11.0) th/mm3 MCV (80.0-100.0) fL Neut % (Auto) (16.0-70.0) % Lymph % (Auto) (9.0-44.0) % [place] % (Auto) (0.0-8.0) % Neut # (Auto) (1.8-7.7) th/mm3 Lymph # (Auto) (1.0-4.8) th/mm3 [place] # (Auto) (0.0-0.9) th/mm3 BUN (7-18) mg/dL Creatinine (0.50-1.00) mg/dL Estimated GFR (>89) mL/min POC Glucose 111 H (68-110) mg/dl Random Glucose (74-106) mg/dL ALT (10-53) U/L Albumin (3.4-5.0) g/dL Short CBC 01/23/18 Range/Units 06:22 WBC 12.7 H (4.0-11.0) th/mm3 Hgb 14.6 (11.6-15.3) gm/dL Hct 44.2 (35.0-46.0) % Plt Count 268 (150-450) th/mm3 BMP 01/23/18 06:22 Sodium 139 Potassium 4.8 Chloride 107 Carbon Dioxide 23.8 BUN 45 H Creatinine 1.68 H Calcium 8.8 Liver Function 01/23/18 Range/Units 06:22 Total Bilirubin 0.3 (0.2-1.0) mg/dL AST 27 (15-37) U/L ALT 70 H (10-53) U/L Alkaline Phosphatase 61 (45-117) U/L Albumin 3.3 L (3.4-5.0) g/dL <Dani Martinez - 01/23/18 09:30> - Imaging Impressions Chest X-Ray 01/22/18 00:00 CONCLUSION: Cardiomegaly with mild generalized interstitial vascular congestion. Mild left basilar airspace disease <Dani Martinez - 01/23/18 09:30> Physical Exam Vital signs: Vital Signs 01/22/18 12:00 01/22/18 12:29 01/22/18 16:00 Temperature 97.5 F L 97.3 F L Pulse Rate 90 84 94 H Respiratory Rate 16 14 16 Blood Pressure 150/77 H 171/96 H Pulse Oximetry 93 L 95 Pulse Oximetry [Exertion on Room Air] Pulse Oximetry [Exertion with Oxygen] Pulse Oximetry [Resting on Room Air] Pulse Oximetry [Resting with Oxygen] 01/22/18 16:12 01/22/18 16:45 01/22/18 17:39 Temperature Pulse Rate 92 H 80 96 H Respiratory Rate 20 Blood Pressure 162/80 H Pulse Oximetry Pulse Oximetry [Exertion on Room Air] 82 L Pulse Oximetry [Exertion with Oxygen] 90 L Pulse Oximetry [Resting on Room Air] 94 L Pulse Oximetry [Resting with Oxygen] 96 01/22/18 19:35 01/22/18 20:00 01/22/18 23:44 Temperature 97.7 F Pulse Rate 90 88 85 Respiratory Rate 18 18 18 Blood Pressure 116/76 Pulse Oximetry 94 L 95 Pulse Oximetry [Exertion on Room Air] Pulse Oximetry [Exertion with Oxygen] Pulse Oximetry [Resting on Room Air] Pulse Oximetry [Resting with Oxygen] 01/22/18 23:51 01/23/18 00:00 01/23/18 02:49 Temperature 97.7 F Pulse Rate 78 85 92 H Respiratory Rate 17 16 Blood Pressure 139/65 Pulse Oximetry 95 Pulse Oximetry [Exertion on Room Air] Pulse Oximetry [Exertion with Oxygen] Pulse Oximetry [Resting on Room Air] Pulse Oximetry [Resting with Oxygen] 01/23/18 04:00 01/23/18 08:00 01/23/18 08:47 Temperature 97.2 F L 97 F L Pulse Rate 95 H 85 84 Respiratory Rate 19 20 18 Blood Pressure 113/68 162/86 H Pulse Oximetry 98 97 95 Pulse Oximetry [Exertion on Room Air] Pulse Oximetry [Exertion with Oxygen] Pulse Oximetry [Resting on Room Air] Pulse Oximetry [Resting with Oxygen] Intake & Output 01/22/18 01/23/18 01/23/18 18:59 06:59 18:59 Intake Total 1060 / 1060 1400 / 1400 1000 / 1000 Output Total 950 / 950 500 / 500 Balance 110 / 110 900 / 900 1000 / 1000 Weight 98.8 kg Intake: IV 100 / 100 1000 / 1000 1000 / 1000 NS Inj 1,000 ML @ 130 mls/hr IV 0 / 0 1000 / 1000 1000 / 1000 .CONT .Q7H42M BAY Rx#:[id number] Rocephin Inj 1,000 MG In NS Inj 100 / 100 100 ML @ 200 mls/hr IV.SIG Q24H [facility] Rx#:[id number] Oral 960 / 960 400 / 400 Output: Urine 950 / 950 500 / 500 Other: # Urine Diapers 1 Date of Last Bowel Movement 01/20/18 01/20/18 <Chani Reina - 01/23/18 11:34> Vital Signs 01/22/18 12:00 01/22/18 12:29 01/22/18 16:00 Temperature 97.5 F L 97.3 F L Pulse Rate 90 84 94 H Respiratory Rate 16 14 16 Blood Pressure 150/77 H 171/96 H Pulse Oximetry 93 L 95 Pulse Oximetry [Exertion on Room Air] Pulse Oximetry [Exertion with Oxygen] Pulse Oximetry [Resting on Room Air] Pulse Oximetry [Resting with Oxygen] 01/22/18 16:12 01/22/18 16:45 01/22/18 17:39 Temperature Pulse Rate 92 H 80 96 H Respiratory Rate 20 Blood Pressure 162/80 H Pulse Oximetry Pulse Oximetry [Exertion on Room Air] 82 L Pulse Oximetry [Exertion with Oxygen] 90 L Pulse Oximetry [Resting on Room Air] 94 L Pulse Oximetry [Resting with Oxygen] 96 01/22/18 19:35 01/22/18 20:00 01/22/18 23:44 Temperature 97.7 F Pulse Rate 90 88 85 Respiratory Rate 18 18 18 Blood Pressure 116/76 Pulse Oximetry 94 L 95 Pulse Oximetry [Exertion on Room Air] Pulse Oximetry [Exertion with Oxygen] Pulse Oximetry [Resting on Room Air] Pulse Oximetry [Resting with Oxygen] 01/22/18 23:51 01/23/18 00:00 01/23/18 02:49 Temperature 97.7 F Pulse Rate 78 85 92 H Respiratory Rate 17 16 Blood Pressure 139/65 Pulse Oximetry 95 Pulse Oximetry [Exertion on Room Air] Pulse Oximetry [Exertion with Oxygen] Pulse Oximetry [Resting on Room Air] Pulse Oximetry [Resting with Oxygen] 01/23/18 04:00 01/23/18 08:00 01/23/18 08:47 Temperature 97.2 F L 97 F L Pulse Rate 95 H 89 84 Respiratory Rate 19 20 18 Blood Pressure 113/68 162/86 H Pulse Oximetry 98 97 95 Pulse Oximetry [Exertion on Room Air] Pulse Oximetry [Exertion with Oxygen] Pulse Oximetry [Resting on Room Air] Pulse Oximetry [Resting with Oxygen] Intake & Output 01/22/18 01/23/18 01/23/18 18:59 06:59 18:59 Intake Total 1060 / 1060 1400 / 1400 1000 / 1000 Output Total 950 / 950 500 / 500 Balance 110 / 110 900 / 900 1000 / 1000 Weight 98.8 kg Intake: IV 100 / 100 1000 / 1000 1000 / 1000 NS Inj 1,000 ML @ 130 mls/hr IV 0 / 0 1000 / 1000 1000 / 1000 .CONT .Q7H42M BAY Rx#:[id number] Rocephin Inj 1,000 MG In NS Inj 100 / 100 100 ML @ 200 mls/hr IV.SIG Q24H [facility] Rx#:[id number] Oral 960 / 960 400 / 400 Output: Urine 950 / 950 500 / 500 Other: # Urine Diapers 1 Date of Last Bowel Movement 01/20/18 01/20/18 <Dani Martinez - 01/23/18 09:30> Narrative: General: Lying in bed, Patient was sleeping when I entered the room. After shaking her to wake her up a little, she is still sleepy, but in no distress Skin: + rash under left breast HEENT: Normocephalic, no conjunctivitis, no nasal discharge Neck: No lymphadenopathy CV: RRR, no rubs, or gallops, regular pulses Lungs: Coarse breath sounds bilaterally. Mild wheezing, somewhat prolonged expiratory phase. Talking in complete sentences. Wearing nasal cannula. Abdomen: Soft, nontender, nondistended, no organomegaly Ext: 1+ lower extremity edema to knee BL. Neuro: Afocal. <Dani Martinez - 01/23/18 09:30> Assessment and Plan - Assessment (1) Pneumonia Code(s): J18.9 - Pneumonia, unspecified organism Status: Acute (2) COPD exacerbation Code(s): J44.1 - Chronic obstructive pulmonary disease with (acute) exacerbation Status: Acute (3) Intertrigo Code(s): L30.4 - Erythema intertrigo Status: Acute (4) CKD (chronic kidney disease) stage 3, GFR 30-59 ml/min Code(s): N18.3 - Chronic kidney disease, stage 3 (moderate) Status: Chronic (5) Hypothyroidism Code(s): E03.9 - Hypothyroidism, unspecified Status: Chronic (6) HTN (hypertension) Code(s): I10 - Essential (primary) hypertension Status: Chronic (7) Type 2 diabetes mellitus Code(s): E11.9 - Type 2 diabetes mellitus without complications Status: Chronic (8) HLD (hyperlipidemia) Code(s): E78.5 - Hyperlipidemia, unspecified Status: Chronic (9) Depression Code(s): F32.9 - Major depressive disorder, single episode, unspecified Status : Chronic <Chani Reina - 01/23/18 11:34> (1) Pneumonia Code(s): J18.9 - Pneumonia, unspecified organism Status: Acute Plan: 3 cardinal symptoms of COPD exacerbation, hypoxia, chest x-ray concerning for pneumonia (consolidation vs effusion). Status post 10 day course of ciprofloxacin outpatient. Remaining afebrile, symptoms starting to improve. - Continue Duoneb treatments, albuterol as needed - oral prednisone taper - O2 supplementation to target 88-92% O2 sat, avoid over-oxygenation - Failed our O2 walk test on 01/22/18. She may need to be discharged on home O2. - Will give influenza vaccine. pneumonia vaccine: pneumococcal polysaccharide PPV23 administered on 11-29-2007; she likely needs another pneumonia vaccine - Outpatient antibiotic regimen will be high dose amoxicillin (1g po tid for 3 more days, 5 days total) and azithromycin (500mg po qd for 1 more day, 3 days total), as she already had a fluoroquinolone. -Blood culture negative for 48 hours (2) COPD exacerbation Code(s): J44.1 - Chronic obstructive pulmonary disease with (acute) exacerbation Status: Acute Plan: -prednisone 40 mg po qd; d/c with prednisone taper -DuoNeb q4h bay, albuterol neb q2h PRN -unable to obtain sputum culture, gram stain -titrate O2 as needed to maintain O2 sat about 88-92% - Started LABA with inhaled steroid: Symbicort - Counseling on smoking cessation (reports that she "vapes" (3) Intertrigo Code(s): L30.4 - Erythema intertrigo Status: Acute Plan: under left breast -clotrimazole topically tid; continue tx until resolved -skin care protocol ordered (4) CKD (chronic kidney disease) stage 3, GFR 30-59 ml/min Code(s): N18.3 - Chronic kidney disease, stage 3 (moderate) Status: Chronic Plan: 08/01/17 Cr of 1.87, 09/06/17 Cr of 1.41, 01/20/18 Cr of 1.51 -CrCl > 30 Improved today back to her baseline creatinine. Eating and drinking normally now , initial bump likely prerenal. -Stop IVF (5) Hypothyroidism Code(s): E03.9 - Hypothyroidism, unspecified Status: Chronic Plan: -continue home medication of levothyroxine 112 mcg po qd (6) HTN (hypertension) Code(s): I10 - Essential (primary) hypertension Status: Chronic Plan: -continue home medication of amlodipine 5 mg po qd (7) Type 2 diabetes mellitus Code(s): E11.9 - Type 2 diabetes mellitus without complications Status: Chronic Plan: -low dose SSI achs -hypoglycemia protocol ordered -hold home med; resume upon d/c (8) HLD (hyperlipidemia) Code(s): E78.5 - Hyperlipidemia, unspecified Status: Chronic Plan: -continue home medication of pravastatin 80mg po qd (9) Depression Code(s): F32.9 - Major depressive disorder, single episode, unspecified Status : Chronic Plan: -continue home medication of Lexapro 10 mg po qd <Dani Martinez - 01/23/18 10:24> - Assessment and Plan Patient is an 82 year old female with a history of COPD, not on home oxygen, CKD stage III, hypertension, diabetes, hypothyroidism, hyperlipidemia, depression who presents with increased dyspnea, 3 out of 3 cardinal symptoms of COPD exacerbation, hypoxia, chest x-ray concerning for pneumonia. Plan to admit to treat for pneumonia with IV antibiotics, oxygen as needed. Blood cultures negative for 48 hours. We will treat COPD exacerbation with steroids, nebulized breathing treatments. Discharging patient to [facility] facility for rehab recommended by physical therapy. Patient will complete her antibiotic course at rehab along with a steroid taper. She will be sent there with home oxygen because she failed home O2 walk test. <Dani Martinez - 01/23/18 10:27> Discussed Condition With: Dr. Patel, Dr. Reina <Dani Martinez - 01/23/18 10:27> Discharge Planning: The ultimate plan is for patient to move in with her daughter in [place]. However, the house is currently being remodeled, and patient cannot move in yet. We will get case management on board to help d/c to SNF per PT rec's. At this time, she would be unsafe to go back home where she lives alone with her dog. Of note, we performed a walk test with patient and she had O2 saturations 86-87% just walking to the door in her room, so she will likely need home O2. <Dani Martinez - 01/23/18 10:27> - Attending Attestation The exam, history, and the medical decision-making described in the above note were completed with the assistance of the resident physician. I reviewed and agree with the findings presented. I attest that I had a [id number] encounter with the patient on the same day, and personally performed and documented my assessment and findings in the medical record. she is feeling clinically better. She and her daughter feel rushed about discharge today. i explained that if a pt is clinically better and ready to leave the hospital, a rehab facility is the best choice as in the hospital people sit in bed too much and have little strengthening. Her ultimate plan is to move to [place] to be with her daughter and her family. <Chani Reina - 01/23/18 11:34> <Dani Martinez - Last Filed: 01/23/18 10:24> (1) Pneumonia Qualifiers: Pneumonia type: due to unspecified organism Laterality: right Lung location : lower lobe of lung Qualified Code(s): J18.1 - Lobar pneumonia, unspecified organism <Chani Reina - Last Filed: 01/23/18 11:34> (1) Pneumonia Qualifiers: Pneumonia type: due to unspecified organism Laterality: right Lung location : lower lobe of lung Qualified Code(s): J18.1 - Lobar pneumonia, unspecified organism <Dani Martinez - Last Filed: 01/23/18 10:24> (1) Pneumonia Qualifiers: Pneumonia type: due to unspecified organism Laterality: right Lung location : lower lobe of lung Qualified Code(s): J18.1 - Lobar pneumonia, unspecified organism <Chani Reina - Last Filed: 01/23/18 11:34> (1) Pneumonia Qualifiers: Pneumonia type: due to unspecified organism Laterality: right Lung location : lower lobe of lung Qualified Code(s): J18.1 - Lobar pneumonia, unspecified organism
[2018-01-23] MEDS: Azithromycin 250 MG Tablet PO SCH (13:46)
[2018-01-23] MEDS ORDERED: Enoxaparin Inj 30 MG/0.3 ML Syringe SQ SCH (17:00)
== END 2018-01-23 17:25 ==
LOC: NEPC 12:34 → NEDA 14:36 → N04 17:44
PROVIDERS: ADMIT Family Medicine; ATTEND Family Medicine